=== PATIENT | male | born 1955 | race Caucasian/White ===

== ENCOUNTER 2019-05-24 09:26 | Emergency (ER) | payer BC ==
[2019-05-24 09:46] VITALS: TEMP 97.9
[2019-05-24] MEDS ORDERED: ALPRAZolam 0.25 MG TAB PO STA (10:22)
--- NOTE | 2019-05-24 10:25 | ED ---
General Adult HPI - General Chief complaint: Anxiety Stated complaint: anxiety, SOB Time Seen by Provider: 05/24/19 09:47 Source: patient Mode of arrival: ambulatory Limitations: no limitations - History of Present Illness Initial comments: Dictation was produced using [employer] dictation software. please excuse any grammatical, word or spelling errors. Chief Complaint: 63-year-old male with past medical history diabetes and hypertension presents with anxiety reaction. History of Present Illness: 63-year-old male who presents with symptoms of anxiety. Patient states he has a history of deviated septum. Patient states that last night he had some trouble breathing during sleep. He woke up with significant dyspnea. Patient does off and again felt like he couldn't breathe. He woke up feeling very anxious. Patient describes that he feels like there is impending doom. Patient feels much better since he's been awake. He actually has no complaints at this time. Patient has not received medical treatment or evaluation for deviated septum in the past. Denies any chest pain. No shortness of breath. The ROS documented in this emergency department record has been reviewed and confirmed by me. Those systems with pertinent positive or negative responses have been documented in the HPI. All other systems are other negative and/or noncontributory. PHYSICAL EXAM: General Impression: Alert and oriented x3, not in acute distress HEENT: Normocephalic atraumatic, extra-ocular movements intact, pupils equal and reactive to light bilaterally, mucous membranes moist. Cardiovascular: Heart regular rate and rhythm, S1&S2 audible, no murmurs, rubs or gallops Chest: Lungs clear to auscultation bilaterally, no rhonchi, no wheeze, no rales Abdomen: Bowel sounds present, abdomen soft, non-tender, non-distended, no organomegaly Musculoskeletal: Pulses present and equal in all extremities, no peripheral edema Motor: no focal deficits noted Neurological: CN II-XII grossly intact, no focal motor or sensory deficits noted Skin: Intact with no visualized rashes Psych: Normal affect and mood ED course: 63-year-old male presents with clinical presentation consistent with anxiety reaction. As upon arrival are within acceptable limits. Patient's well-appearing at bedside. Physical examination is benign. She given small Xanax by mouth tablet. He is reevaluated with improvement of symptoms. Laboratory evaluation obtained showing grossly normal findings. Magnesium is 1.5 however patient given by mouth magnesium. Patient is concerned about his deviated septum. He is given referral to saw offbearer. Vision also given 2 when necessary Xanax tabs for home with. - Related Data Home Medications Medication Instructions Recorded Confirmed Aspirin EC [Ecotrin Low Dose] 81 mg PO DAILY 05/24/19 05/24/19 Atorvastatin Calcium [Lipitor] 40 mg PO DAILY 05/24/19 05/24/19 Cyclobenzaprine [Flexeril] 10 mg PO BID PRN 05/24/19 05/24/19 Gemfibrozil [Lopid] 600 mg PO BID 05/24/19 05/24/19 Lisinopril-Hctz 20-25 mg 1 tab PO DAILY 05/24/19 05/24/19 [Zestoretic 20-25] Meloxicam [Mobic] 7.5 mg PO BID 05/24/19 05/24/19 Metoprolol Tartrate [Lopressor] 100 mg PO BID 05/24/19 05/24/19 Omeprazole 20 mg PO DAILY 05/24/19 05/24/19 amLODIPine [Norvasc] 5 mg PO DAILY 05/24/19 05/24/19 metFORMIN HCL 1,000 mg PO BID 05/24/19 05/24/19 Previous Rx's Medication Instructions Recorded ALPRAZolam [Xanax] 0.25 mg PO DAILY PRN 3 Days #3 tab 05/24/19 Allergies Allergy/AdvReac Type Severity Reaction Status Date / Time codeine Allergy Unknown Verified 05/24/19 10:35 erythromycin base Allergy Unknown Verified 05/24/19 10:35 Review of Systems ROS Statement: Those systems with pertinent positive or pertinent negative responses have been documented in the HPI. ROS Other: All systems not noted in ROS Statement are negative. Past Medical History Past Medical History: Diabetes Mellitus, Hypertension History of Any Multi-Drug Resistant Organisms: MRSA Date of last positivie culture/infection: 2013 MDRO Source:: knee Past Surgical History: No Surgical Hx Reported Past Psychological History: No Psychological Hx Reported Smoking Status: Never smoker Past Alcohol Use History: Occasional Past Drug Use History: None Reported General Exam Limitations: no limitations Course Vital Signs 05/24/19 09:42 Temperature 97.9 F Pulse Rate 57 L Respiratory 18 Rate Blood Pressure 199/93 O2 Sat by Pulse 96 Oximetry Medical Decision Making - Lab Data Result diagrams: 05/24/19 10:45 05/24/19 10:45 Lab Results 05/24/19 05/24/19 Range/Units 10:45 10:45 WBC 10.6 (3.8-10.6) k/uL RBC 5.21 (4.30-5.90) m/uL Hgb 15.1 (13.0-17.5) gm/dL Hct 44.6 (39.0-53.0) % MCV 85.7 (80.0-100.0) fL MCH 29.0 (25.0-35.0) pg MCHC 33.8 (31.0-37.0) g/dL RDW 14.2 (11.5-15.5) % Plt Count 317 (150-450) k/uL Neutrophils % 69 % Lymphocytes % 19 % Monocytes % 6 % Eosinophils % 4 % Basophils % 1 % Neutrophils # 7.3 (1.3-7.7) k/uL Lymphocytes # 2.0 (1.0-4.8) k/uL Monocytes # 0.6 (0-1.0) k/uL Eosinophils # 0.4 (0-0.7) k/uL Basophils # 0.1 (0-0.2) k/uL Poikilocytosis Slight Sodium 140 (137-145) mmol/L Potassium 3.8 (3.5-5.1) mmol/L Chloride 102 (98-107) mmol/L Carbon Dioxide 27 (22-30) mmol/L Anion Gap 11 mmol/L BUN 17 (9-20) mg/dL Creatinine 0.78 (0.66-1.25) mg/dL Est GFR (CKD-EPI)AfAm >90 (>60 ml/min/1.73 sqM) Est GFR (CKD-EPI)NonAf >90 (>60 ml/min/1.73 sqM) Glucose 124 H (74-99) mg/dL Calcium 9.9 (8.4-10.2) mg/dL Phosphorus 2.7 (2.5-4.5) mg/dL Magnesium 1.5 L (1.6-2.3) mg/dL Total Bilirubin 0.7 (0.2-1.3) mg/dL AST 35 (17-59) U/L ALT 45 (21-72) U/L Alkaline Phosphatase 53 (38-126) U/L Total Protein 7.4 (6.3-8.2) g/dL Albumin 4.5 (3.5-5.0) g/dL Disposition Clinical Impression: Anxiety reaction Disposition: HOME SELF-CARE Instructions (If sedation given, give patient instructions): Generalized Anxiety Disorder (ED) Prescriptions: ALPRAZolam [Xanax] 0.25 mg PO DAILY PRN 3 Days #3 tab PRN Reason: Anxiety Is patient prescribed a controlled substance at d/c from ED?: Yes If prescribed controlled substance>3 days was MAPS reviewed?: Prescribed <3 Days Referrals: Uriah Hooper DO [Doctor of Osteopathic Medicine] - 1-2 days Time of Disposition: 11:28
[2019-05-24 11:02] LABS: Basophils # (A) 0.1 k/uL (0-0.2); Basophils % (A) 1 %; Eosinophils # (A) 0.4 k/uL (0-0.7); Eosinophils % (A) 4 %; HCT 44.6 % (39.0-53.0); HGB 15.1 gm/dL (13.0-17.5); Lymphocytes % (A) 19 %; MCHC 33.8 g/dL (31.0-37.0); MCV 85.7 fL (80.0-100.0); Mean Platelet Volume 7.1; Monocytes # (A) 0.6 k/uL (0-1.0); Monocytes % (A) 6 %; Neutrophils # (A) 7.3 k/uL (1.3-7.7); Neutrophils % (A) 69 %; Platelet Count 317 k/uL (150-450); Poikilocytosis Slight; RBC 5.21 m/uL (4.30-5.90); RDW 14.2 % (11.5-15.5); WBC 10.6 k/uL (3.8-10.6)
[2019-05-24 11:14] LABS: ALT 45 U/L (21-72); AST 35 U/L (17-59); African American GFR (CKD) >90 (>60 ml/min/1.73 sqM); Albumin 4.5 g/dL (3.5-5.0); Alkaline Phosphatase 53 U/L (38-126); Anion Gap 11 mmol/L; Blood Urea Nitrogen 17 mg/dL (9-20); Calcium 9.9 mg/dL (8.4-10.2); Carbon Dioxide 27 mmol/L (22-30); Chloride 102 mmol/L (98-107); Glucose 124 mg/dL (74-99); Magnesium 1.5 mg/dL (1.6-2.3); Phosphorus 2.7 mg/dL (2.5-4.5); Potassium 3.8 mmol/L (3.5-5.1); Sodium 140 mmol/L (137-145); Total Bilirubin 0.7 mg/dL (0.2-1.3); Total Protein 7.4 g/dL (6.3-8.2)
[2019-05-24] MEDS ORDERED: MAGNESIUM OXIDE 400 MG TAB PO STA (11:18)
[2019-05-24 11:40] VITALS: BP 170/90; PULSE 80; RESP 16
== END 2019-05-24 11:38 | disposition home or self-care (01) ==
LOC: EC 09:26
DX: F41.1 Generalized anxiety disorder (principal); E11.9 Type 2 diabetes mellitus without complications; I10 Essential (primary) hypertension; J34.2 Deviated nasal septum; Z79.82 Long term (current) use of aspirin; Z79.84 Long term (current) use of oral hypoglycemic drugs; Z79.1 Long term (current) use of non-steroidal anti-inflammatories (NSAID); Z79.899 Other long term (current) drug therapy; Z88.1 Allergy status to other antibiotic agents; Z88.5 Allergy status to narcotic agent
CPT/HCPCS: 36415; 80053; 83735; 84100; 85025; 93005; 99283

== ENCOUNTER → 2021-05-25 | Outpatient (CLI) | payer BC ==
--- NOTE | 2021-05-26 07:58 | US ---
EXAMINATION TYPE: US abdomen complete DATE OF EXAM: 05/25/2021 COMPARISON: NONE CLINICAL HISTORY: 65-year-old male R10.11 RUQ Abd pain. TECHNIQUE: Multiple sonographic images of the abdomen are obtained. FINDINGS: EXAM MEASUREMENTS: Liver Length: 15.5 cm Gallbladder Wall: 0.3 cm CBD: 0.5 cm Spleen: 11.3 cm Right Kidney: 12.9 x 6.2 x 5.8 cm Left Kidney: 12.9 x 5.8 x 5.2 cm Pancreas: Only a small portion of the pancreatic neck is seen. Remainder is obscured by bowel gas sh adowing. Liver: Very slightly heterogeneous and echogenic. No focal lesion is seen. Gallbladder: No stones seen Evidence for sonographic Hinton's sign: No CBD: wnl Spleen: wnl Right Kidney: No hydronephrosis or masses seen Left Kidney: No hydronephrosis or masses seen Upper IVC: wnl Abd Aorta: Obscured by overlying bowel gas IMPRESSION: 1. Suspect underlying mild hepatic steatosis. 2. No gallstones or biliary ductal dilatation.
== END | disposition home or self-care (01) ==
LOC: RADUSWWP 15:45
PROVIDERS: ATTEND Internal Medicine
DX: R10.11 Right upper quadrant pain (principal)
CPT/HCPCS: 76700

== ENCOUNTER 2021-09-08 10:52 | Emergency (ER) | payer BC ==
[2021-09-08 11:21] VITALS: TEMP 97.4
[2021-09-08] MEDS ORDERED: ONDANSETRON 4 MG/2 ML VIAL IVP STA (11:56)
[2021-09-08] MEDS ORDERED: SODIUM CHLORIDE 0.9% 1,000 ML IV STA (11:56)
[2021-09-08 12:32] LABS: Basophils % (A) 1 %; Eosinophils # (A) 0.2 k/uL (0-0.7); Eosinophils % (A) 2 %; HCT 43.7 % (39.0-53.0); HGB 15.2 gm/dL (13.0-17.5); Lymphocytes # (A) 0.6 k/uL (1.0-4.8); Lymphocytes % (A) 9 %; MCH 30.2 pg (25.0-35.0); MCHC 34.7 g/dL (31.0-37.0); Mean Platelet Volume 7.6; Monocytes # (A) 0.6 k/uL (0-1.0); Monocytes % (A) 9 %; Neutrophils # (A) 5.1 k/uL (1.3-7.7); Neutrophils % (A) 77 %; Platelet Count 276 k/uL (150-450); RBC 5.02 m/uL (4.30-5.90); RDW 13.8 % (11.5-15.5); WBC 6.6 k/uL (3.8-10.6)
[2021-09-08 12:41] LABS: ALT 31 U/L (4-49); AST 39 U/L (17-59); African American GFR (CKD) >90 (>60 ml/min/1.73 sqM); Albumin 4.8 g/dL (3.5-5.0); Alkaline Phosphatase 79 U/L (38-126); Anion Gap 11 mmol/L; Blood Urea Nitrogen 13 mg/dL (9-20); Carbon Dioxide 32 mmol/L (22-30); Chloride 89 mmol/L (98-107); Glucose 133 mg/dL (74-99); Non-African American GFR(CKD) >90 (>60 ml/min/1.73 sqM); Potassium 2.8 mmol/L (3.5-5.1); Sodium 132 mmol/L (137-145); Total Bilirubin 0.9 mg/dL (0.2-1.3); Total Protein 7.9 g/dL (6.3-8.2)
[2021-09-08] MEDS ORDERED: SODIUM CHLORIDE 0.9% 50 ML IVPB ONE (12:45)
[2021-09-08] MEDS ORDERED: METOPROLOL TARTRATE 50 MG TAB PO STA (12:58)
[2021-09-08] MEDS ORDERED: LISINOPRIL-HCTZ 20-25 MG 1 EACH TAB PO STA (12:58)
[2021-09-08] MEDS ORDERED: amLODIPine 5 MG TAB PO STA (12:58)
[2021-09-08] MEDS ORDERED: BAMLANIVIMAB (EUA) 700 MG, ETESEVIMAB (EUA) 1,400 MG in SODIUM CHLORIDE 0.9% 100 ML IVPB ONE (13:15)
[2021-09-08] MEDS ORDERED: POTASSIUM CHLORIDE ER 20 MEQ TAB.ER PO STA (13:26)
--- NOTE | 2021-09-08 13:35 | ED ---
General Adult HPI - General Chief complaint: Nausea/Vomiting/Diarrhea Stated complaint: Covid+/Wants antibodies Time Seen by Provider: 09/08/21 11:23 Source: patient, RN notes reviewed Mode of arrival: ambulatory Limitations: no limitations - History of Present Illness Initial comments: 65-year-old male presents to the emergency room for a chief complaint of not feeling well. Patient states his whole family tested positive for COVID-19. States that he did not test positive at home but believes he has a. Patient has had some nausea vomiting and hasn't been able to keep down his medications. He has been somewhat short of breath. He has also felt very weak. He states that she would like to have the antibody infusion.Patient has no other complaints at this time including shortness of breath, chest pain, abdominal pain, headache, or visual changes. - Related Data Home Medications Medication Instructions Recorded Confirmed Atorvastatin Calcium [Lipitor] 40 mg PO DAILY 05/24/19 09/08/21 Gemfibrozil [Lopid] 600 mg PO BID 05/24/19 09/08/21 Lisinopril-Hctz 20-25 mg 1 tab PO BID 05/24/19 09/08/21 [Zestoretic 20-25] Meloxicam [Mobic] 7.5 mg PO BID 05/24/19 09/08/21 Metoprolol Tartrate [Lopressor] 100 mg PO BID 05/24/19 09/08/21 Omeprazole 20 mg PO DAILY 05/24/19 09/08/21 amLODIPine [Norvasc] 5 mg PO DAILY 05/24/19 09/08/21 metFORMIN HCL [Glucophage] 1,000 mg PO AC-BID 05/24/19 09/08/21 busPIRone HCl [Buspar] 10 mg PO BID 09/08/21 09/08/21 Previous Rx's Medication Instructions Recorded Magnesium Oxide [Mag-Ox] 400 mg PO DAILY #5 tablet 09/08/21 Ondansetron [Zofran ODT] 4 mg PO Q8HR PRN #15 tab 09/08/21 Potassium Chloride ER [K-Dur 20] 40 meq PO BID 3 Days #6 tab 09/08/21 Allergies Allergy/AdvReac Type Severity Reaction Status Date / Time erythromycin base Allergy Unknown Verified 09/08/21 13:24 codeine AdvReac Chest Pain Verified 09/08/21 13:24 Review of Systems ROS Statement: Those systems with pertinent positive or pertinent negative responses have been documented in the HPI. ROS Other: All systems not noted in ROS Statement are negative. Past Medical History Past Medical History: Diabetes Mellitus, Hypertension History of Any Multi-Drug Resistant Organisms: MRSA Date of last positivie culture/infection: 2013 MDRO Source:: knee Past Surgical History: No Surgical Hx Reported Past Psychological History: No Psychological Hx Reported Smoking Status: Never smoker Past Alcohol Use History: Occasional Past Drug Use History: Marijuana General Exam Limitations: no limitations General appearance: alert, in no apparent distress Head exam: Present: atraumatic Eye exam: Present: normal appearance, PERRL, EOMI. Absent: scleral icterus, conjunctival injection ENT exam: Present: normal exam, mucous membranes moist Neck exam: Present: normal inspection, full ROM. Absent: tenderness Respiratory exam: Present: normal lung sounds bilaterally. Absent: respiratory distress, wheezes Cardiovascular Exam: Present: regular rate, normal rhythm, normal heart sounds GI/Abdominal exam: Present: soft, normal bowel sounds. Absent: distended, tende rness Neurological exam: Present: alert Course Vital Signs 09/08/21 09/08/21 09/08/21 11:17 11:42 12:21 Temperature 97.4 F L Pulse Rate 106 H 95 Respiratory 18 16 16 Rate Blood Pressure 182/102 200/105 O2 Sat by Pulse 96 91 L Oximetry 09/08/21 14:00 Temperature Pulse Rate 100 Respiratory 18 Rate Blood Pressure 183/97 O2 Sat by Pulse 92 L Oximetry Medical Decision Making - Medical Decision Making Vitals are stable.Patient is hypertensive however was unable to keep down his multiple medications today for this. Patient did test positive for COVID-19. Laboratory evaluation was initiated given patient has not been able to eat or drink much. This did reveal hypokalemia and hypomagnesemia. No EKG changes. These were replaced. I did recommend admission however patient strongly prefers discharge home. We will discharge him home with replacement therapy orally for the next several days. He will be discharged with Zofran as well as as he is now tolerating oral intake with this. He will return here for any worsening symptoms. - Lab Data Result diagrams: 09/08/21 12:01 09/08/21 12:02 Lab Results 09/08/21 09/08/2109/08/21 Range/Units 11:25 12:01 12:02 WBC 6.6 (3.8-10.6) k/uL RBC 5.02 (4.30-5.90) m/uL Hgb 15.2 (13.0-17.5) gm/dL Hct 43.7 (39.0-53.0) % MCV 87.0 (80.0-100.0) fL MCH 30.2 (25.0-35.0) pg MCHC 34.7 (31.0-37.0) g/dL RDW 13.8 (11.5-15.5) % Plt Count 276 (150-450) k/uL MPV 7.6 Neutrophils % 77 % Lymphocytes % 9 % Monocytes % 9 % Eosinophils % 2 % Basophils % 1 % Neutrophils # 5.1 (1.3-7.7) k/uL Lymphocytes # 0.6 L (1.0-4.8) k/uL Monocytes # 0.6 (0-1.0) k/uL Eosinophils # 0.2 (0-0.7) k/uL Basophils # 0.0 (0-0.2) k/uL Sodium 132 L (137-145) mmol/L Potassium 2.8 L (3.5-5.1) mmol/L Chloride 89 L (98-107) mmol/L Carbon Dioxide 32 H (22-30) mmol/L Anion Gap 11 mmol/L BUN 13 (9-20) mg/dL Creatinine 0.72 (0.66-1.25) mg/dL Est GFR (CKD-EPI)AfAm >90 (>60 ml/min/1.73 sqM) Est GFR (CKD-EPI)NonAf >90 (>60 ml/min/1.73 sqM) Glucose 133 H (74-99) mg/dL Calcium 10.0 (8.4-10.2) mg/dL Magnesium (1.6-2.3) mg/dL Total Bilirubin 0.9 (0.2-1.3) mg/dL AST 39 (17-59) U/L ALT 31 (4-49) U/L Alkaline Phosphatase 79 (38-126) U/L Total Protein 7.9 (6.3-8.2) g/dL Albumin 4.8 (3.5-5.0) g/dL Coronavirus (PCR) Detected A (Not Detectd) 09/08/21 Range/Units 12:02 WBC (3.8-10.6) k/uL RBC (4.30-5.90) m/uL Hgb (13.0-17.5) gm/dL Hct (39.0-53.0) % MCV (80.0-100.0) fL MCH (25.0-35.0) pg MCHC (31.0-37.0) g/dL RDW (11.5-15.5) % Plt Count (150-450) k/uL MPV Neutrophils % % Lymphocytes % % Monocytes % % Eosinophils % % Basophils % % Neutrophils # (1.3-7.7) k/uL Lymphocytes # (1.0-4.8) k/uL Monocytes # (0-1.0) k/uL Eosinophils # (0-0.7) k/uL Basophils # (0-0.2) k/uL Sodium (137-145) mmol/L Potassium (3.5-5.1) mmol/L Chloride (98-107) mmol/L Carbon Dioxide (22-30) mmol/L Anion Gap mmol/L BUN (9-20) mg/dL Creatinine (0.66-1.25) mg/dL Est GFR (CKD-EPI)AfAm (>60 ml/min/1.73 sqM) Est GFR (CKD-EPI)NonAf (>60 ml/min/1.73 sqM) Glucose (74-99) mg/dL Calcium (8.4-10.2) mg/dL Magnesium 0.9 L* (1.6-2.3) mg/dL Total Bilirubin (0.2-1.3) mg/dL AST (17-59) U/L ALT (4-49) U/L Alkaline Phosphatase (38-126) U/L Total Protein (6.3-8.2) g/dL Albumin (3.5-5.0) g/dL Coronavirus (PCR) (Not Detectd) Disposition Clinical Impression: Hypomagnesemia, Hypokalemia, COVID-19 Disposition: HOME SELF-CARE Condition: Good Instructions (If sedation given, give patient instructions): Acute Nausea and Vomiting (ED), Coronavirus Disease 2019 (COVID-19) Additional Instructions: Please take medications as directed. Follow-up with your doctor. If you are not able to keep any of your medications or food down return to the emergency room. Prescriptions: Potassium Chloride ER [K-Dur 20] 40 meq PO BID 3 Days #6 tab Magnesium Oxide [Mag-Ox] 400 mg PO DAILY #5 tablet Ondansetron [Zofran ODT] 4 mg PO Q8HR PRN #15 tab PRN Reason: Nausea Is patient prescribed a controlled substance at d/c from ED?: No Referrals: Radha Herrera MD [Primary Care Provider] - 1-2 days Time of Disposition: 15:00
[2021-09-08] MEDS ORDERED: Magnesium Replacement Protocol 1 EACH MISC MISCELLANE PRN (13:39)
[2021-09-08] MEDS: MAGNESIUM SULFATE-D5W PMX 1 GM in DEXTROSE/WATER 1 100ML.BAG IVPB SCH ×2 (13:56→14:50)
[2021-09-08 14:32] VITALS: RESP 18
[2021-09-08 16:00] VITALS: BP 181/93; PULSE 77
== END 2021-09-08 16:08 | disposition home or self-care (01) ==
LOC: EC 10:52
DX: U07.1 COVID-19 (principal); E87.6 Hypokalemia; E83.42 Hypomagnesemia; I10 Essential (primary) hypertension; E11.9 Type 2 diabetes mellitus without complications; F12.90 Cannabis use, unspecified, uncomplicated; Z79.84 Long term (current) use of oral hypoglycemic drugs; Z88.5 Allergy status to narcotic agent
CPT/HCPCS: 96361; 96365; 96375; 99285; M0245; 36415; 80053; 83735; 85025; 87635; 93005

== ENCOUNTER 2021-09-16 14:37 | Emergency (ER) | payer BC ==
[2021-09-16 15:34] VITALS: TEMP 98.1
[2021-09-16] MEDS ORDERED: SODIUM CHLORIDE 0.9% 1,000 ML IV STA (16:22)
[2021-09-16] MEDS ORDERED: ONDANSETRON 4 MG/2 ML VIAL IVP STA (16:22)
[2021-09-16 17:11] LABS: Basophils # (A) 0.1 k/uL (0-0.2); Basophils % (A) 0 %; Eosinophils # (A) 0.4 k/uL (0-0.7); Eosinophils % (A) 3 %; HCT 46.6 % (39.0-53.0); HGB 15.9 gm/dL (13.0-17.5); Lymphocytes # (A) 1.9 k/uL (1.0-4.8); Lymphocytes % (A) 18 %; MCH 29.9 pg (25.0-35.0); MCHC 34.1 g/dL (31.0-37.0); MCV 87.7 fL (80.0-100.0); Mean Platelet Volume 7.6; Monocytes # (A) 0.7 k/uL (0-1.0); Monocytes % (A) 6 %; Neutrophils # (A) 7.8 k/uL (1.3-7.7); Neutrophils % (A) 71 %; Platelet Count 387 k/uL (150-450); RBC 5.31 m/uL (4.30-5.90); RDW 14.1 % (11.5-15.5); WBC 11.1 k/uL (3.8-10.6)
[2021-09-16 17:19] LABS: ALT 39 U/L (4-49); AST 36 U/L (17-59); African American GFR (CKD) >90 (>60 ml/min/1.73 sqM); Albumin 4.5 g/dL (3.5-5.0); Alkaline Phosphatase 78 U/L (38-126); Amylase 42 U/L (30-110); Anion Gap 10 mmol/L; Blood Urea Nitrogen 22 mg/dL (9-20); Calcium 10.1 mg/dL (8.4-10.2); Carbon Dioxide 30 mmol/L (22-30); Chloride 90 mmol/L (98-107); Glucose 111 mg/dL (74-99); Lipase 76 U/L (23-300); Magnesium 1.4 mg/dL (1.6-2.3); Non-African American GFR(CKD) >90 (>60 ml/min/1.73 sqM); Potassium 3.4 mmol/L (3.5-5.1); Sodium 130 mmol/L (137-145); Total Bilirubin 0.9 mg/dL (0.2-1.3); Total Protein 7.4 g/dL (6.3-8.2)
[2021-09-16] MEDS ORDERED: MAGNESIUM OXIDE 400 MG TAB PO STA (18:08)
[2021-09-16] MEDS ORDERED: POTASSIUM CHLORIDE ER 20 MEQ TAB.ER PO STA (18:08)
--- NOTE | 2021-09-16 18:10 | ED ---
Nausea/Vomiting/Diarrhea HPI - General Chief complaint: Nausea/Vomiting/Diarrhea Stated complaint: COVID +,N/V Time Seen by Provider: 09/16/21 16:15 Source: patient, RN notes reviewed Mode of arrival: ambulatory Limitations: no limitations - History of Present Illness Initial comments: Patient is a 65-year-old male that presents to the emergency department complaining of nausea and vomiting. He notes he is been Covid-positive since the got monoclonal antibodies. He notes that his last visit his electrolytes were slightly off. He notes that he is only vomited several times today. He notes that he is tolerating orals and small quantities. He notes that he take Zofran before being and tends to help. He notes his centimeters emergency room to get repeat labs to make sure his electrolytes are okay. Patient denied any other issues or complaints. He was otherwise well- appearing. He denied any chest pain shortness of breath headache diarrhea constipation fever fatigue chills. - Related Data Home Medications Medication Instructions Recorded Confirmed Atorvastatin Calcium [Lipitor] 40 mg PO DAILY 05/24/19 09/16/21 Gemfibrozil [Lopid] 600 mg PO BID 05/24/19 09/16/21 Lisinopril-Hctz 20-25 mg 1 tab PO BID 05/24/19 09/16/21 [Zestoretic 20-25] Meloxicam [Mobic] 7.5 mg PO BID 05/24/19 09/16/21 Metoprolol Tartrate [Lopressor] 100 mg PO BID 05/24/19 09/16/21 Omeprazole 20 mg PO DAILY 05/24/19 09/16/21 amLODIPine [Norvasc] 5 mg PO DAILY 05/24/19 09/16/21 metFORMIN HCL [Glucophage] 1,000 mg PO AC-BID 05/24/19 09/16/21 busPIRone HCl [Buspar] 10 mg PO BID 09/08/21 09/16/21 Aspirin EC [Ecotrin Low Dose] 81 mg PO DAILY 09/16/21 09/16/21 Allergies Allergy/AdvReac Type Severity Reaction Status Date / Time erythromycin base Allergy Unknown Verified 09/16/21 17:00 codeine AdvReac Chest Pain Verified 09/16/21 17:00 Review of Systems ROS Statement: Those systems with pertinent positive or pertinent negative responses have been documented in the HPI. ROS Other: All systems not noted in ROS Statement are negative. Past Medical History Past Medical History: Diabetes Mellitus, Hypertension History of Any Multi-Drug Resistant Organisms: MRSA Date of last positivie culture/infection: 2013 MDRO Source:: knee Past Surgical History: No Surgical Hx Reported Past Psychological History: No Psychological Hx Reported Smoking Status: Never smoker Past Alcohol Use History: Occasional Past Drug Use History: Marijuana General Exam Limitations: no limitations General appearance: alert, in no apparent distress Head exam: Present: atraumatic, normocephalic, normal inspection Eye exam: Present: normal appearance, PERRL, EOMI. Absent: scleral icterus, conjunctival injection, periorbital swelling ENT exam: Present: normal exam, mucous membranes moist Neck exam: Present: normal inspection. Absent: tenderness, meningismus, lymphadenopathy Respiratory exam: Present: normal lung sounds bilaterally. Absent: respiratory distress, wheezes, rales, rhonchi, stridor Cardiovascular Exam: Present: regular rate, normal rhythm, normal heart sounds. Absent: systolic murmur, diastolic murmur, rubs, gallop, clicks GI/Abdominal exam: Present: soft, normal bowel sounds. Absent: distended, tenderness, guarding, rebound, rigid Extremities exam: Present: normal inspection, full ROM, normal capillary refill. Absent: tenderness, pedal edema, joint swelling, calf tenderness Neurological exam: Present: alert, oriented X3 Psychiatric exam: Present: normal affect, normal mood Skin exam: Present: warm, dry, intact, normal color. Absent: rash Course Vital Signs 09/16/21 15:32 Temperature 98.1 F Pulse Rate 62 Respiratory 20 Rate Blood Pressure 181/85 O2 Sat by Pulse 96 Oximetry Medical Decision Making - Medical Decision Making 65-year-old male with nausea and vomiting, Covid-positive are he received monoclonal sprain Basic labs, 1 L normal saline, 4 mg of Zofran ordered. Labs potassium 3.4, magnesium 1.4. K-Dur 10 and magnesium oxide ordered. Patient was informed of results yesterday with discharge home with follow-up to primary care. Case discussed with Dr. Del Angel. - Lab Data Result diagrams: 09/16/21 16:55 09/16/21 16:55 Lab Results 09/16/21 09/16/21 Range/Units 16:55 16:55 WBC 11.1 H (3.8-10.6) k/uL RBC 5.31 (4.30-5.90) m/uL Hgb 15.9 (13.0-17.5) gm/dL Hct 46.6 (39.0-53.0) % MCV 87.7 (80.0-100.0) fL MCH 29.9 (25.0-35.0) pg MCHC 34.1 (31.0-37.0) g/dL RDW 14.1 (11.5-15.5) % Plt Count 387 (150-450) k/uL MPV 7.6 Neutrophils % 71 % Lymphocytes % 18 % Monocytes % 6 % Eosinophils % 3 % Basophils % 0 % Neutrophils # 7.8 H (1.3-7.7) k/uL Lymphocytes # 1.9 (1.0-4.8) k/uL Monocytes # 0.7 (0-1.0) k/uL Eosinophils # 0.4 (0-0.7) k/uL Basophils # 0.1 (0-0.2) k/uL Sodium 130 L (137-145) mmol/L Potassium 3.4 L (3.5-5.1) mmol/L Chloride 90 L (98-107) mmol/L Carbon Dioxide 30 (22-30) mmol/L Anion Gap 10 mmol/L BUN 22 H (9-20) mg/dL Creatinine 0.88 (0.66-1.25) mg/dL Est GFR (CKD-EPI)AfAm >90 (>60 ml/min/1.73 sqM) Est GFR (CKD-EPI)NonAf >90 (>60 ml/min/1.73 sqM) Glucose 111 H (74-99) mg/dL Calcium 10.1 (8.4-10.2) mg/dL Magnesium 1.4 L (1.6-2.3) mg/dL Total Bilirubin 0.9 (0.2-1.3) mg/dL AST 36 (17-59) U/L ALT 39 (4-49) U/L Alkaline Phosphatase 78 (38-126) U/L Total Protein 7.4 (6.3-8.2) g/dL Albumin 4.5 (3.5-5.0) g/dL Amylase 42 (30-110) U/L Lipase 76 (23-300) U/L Disposition Clinical Impression: Hypomagnesemia, Hypokalemia, Dehydration, Nausea & vomiting Disposition: HOME SELF-CARE Condition: Stable Instructions (If sedation given, give patient instructions): Acute Nausea and Vomiting (ED) Additional Instructions: Please return to the Emergency Department if symptoms worsen or any other concerns. Follow-up with primary care 1-2 days. Increase fluids. Continue take Zofran as prescribed. Can take kjov-asr-yaowgae multivitamin. Is patient prescribed a controlled substance at d/c from ED?: No Referrals: Radha Herrera MD [Primary Care Provider] - 1-2 days Time of Disposition: 18:10
[2021-09-16 18:32] VITALS: BP 166/85; PULSE 58; RESP 18
== END 2021-09-16 18:32 | disposition home or self-care (01) ==
LOC: EC 14:37
DX: R11.2 Nausea with vomiting, unspecified (principal); E83.42 Hypomagnesemia; E87.6 Hypokalemia; E86.0 Dehydration; E11.9 Type 2 diabetes mellitus without complications; I10 Essential (primary) hypertension; F12.90 Cannabis use, unspecified, uncomplicated; Z79.84 Long term (current) use of oral hypoglycemic drugs; Z79.82 Long term (current) use of aspirin; Z88.5 Allergy status to narcotic agent
CPT/HCPCS: 99284; 96374; 96361; 36415; 80053; 82150; 83690; 83735; 85025; J2405

== ENCOUNTER → 2023-07-23 | Outpatient (CLI) | payer MEDICARE | END | disposition home or self-care (01) | LOC: LABPAT 15:20 | PROVIDERS: ATTEND Orthopaedic Surgery | DX: Z01.812 Encounter for preprocedural laboratory examination (principal); M16.12 Unilateral primary osteoarthritis, left hip; Z22.322 Carrier or suspected carrier of Methicillin resistant Staphylococcus aureus | CPT/HCPCS: 86850; 86900; 86901; 87070 ==

== ENCOUNTER 2023-07-30 05:32 | Observation (INO) | payer BC, MEDICARE ==
[2023-07-24 12:20] VITALS: BMI 34.9
--- NOTE | 2023-07-29 12:40 | HP ---
HISTORY AND PHYSICAL DATE OF SURGERY: 07/30/2023. HISTORY OF PRESENT ILLNESS: Parish Rowe is a 67-year-old gentleman, seen with symptomatic left hip osteoarthritis failing conservative treatment measures. After having options discussed, he elected to proceed with direct anterior left total hip arthroplasty. Consents obtained. Medical clearance provided by Dr. Herrera. Cardiac clearance provided by Cardiology. PAST MEDICAL HISTORY: Oux-nluvdnv-kymslpuny diabetes, hypertension. PAST SURGICAL HISTORY: Noncontributory. DAILY MEDICATIONS: Amlodipine, atorvastatin, gemfibrozil, lisinopril, meloxicam, metformin, metoprolol. ALLERGIES: Codeine. SOCIAL HISTORY: He denies tobacco use. PHYSICAL EVALUATION OF THE LEFT HIP: Diffuse tenderness about the hip girdle. Limited range of motion. Severe pain. Positive hip impingement sign. Straight-leg raise negative. Distal neurovascular exam is intact. IMAGING STUDIES: Left hip radiographs reveal severe osteoarthritic changes. IMPRESSION: 1. Left hip osteoarthritis. 2. Hypertension. 3. Hyperlipidemia. 4. Xkg-mezcbbd-ntkamjgmq diabetes. PLAN: Direct anterior left total hip arthroplasty. MMODL / IJN: [id number] /
[~2023-07-30 05:32] MED LIST: ACETAMINOPHEN TAB 500 MG TAB PO PRN; MELOXICAM 7.5 MG TAB PO PRN; TRANEXAMIC 1,000 MG/100ML-NACL 1,000 MG in SALINE 1 100ML.BAG IVPB PRN
[2023-07-30] MEDS ORDERED: DEXAMETHASONE SOD PHOSPHATE 4 MG/ML 1 ML VIAL IV ONE (06:07)
[2023-07-30] MEDS ORDERED: ONDANSETRON 4 MG/2 ML VIAL IVP ONE ×2 (06:07→11:16)
[2023-07-30] MEDS ORDERED: LIDOCAINE 1% (10MG/ML) FOR IV START INTRADERMA ONE (06:50)
[2023-07-30] MEDS: LACTATED RINGERS 1,000 ML IV SCH (06:50)
[2023-07-30 06:58] LABS: Glucose,Whole Blood 120 mg/dL (70-110)
[2023-07-30] MEDS ORDERED: fentaNYL (PF) 50 MCG/ML 2 ML AMP IV PRN (07:00)
[2023-07-30] MEDS ORDERED: FAMOTIDINE 20 MG/2 ML VIAL IVP ONE (07:00)
[2023-07-30] MEDS ORDERED: MIDAZOLAM 2 MG/2 ML VIAL IV PRN (07:00)
[2023-07-30] MEDS ORDERED: SODIUM CHLORIDE 0.9% NEBULIZ 3 ML INHALATION ONE (07:05)
--- NOTE | 2023-07-30 07:32 | P.ANPRN ---
Procedure Note - Anesthesia - Nerve Block Performed Left Ernesto Single Time Out Performed: Yes Date of Procedure: 07/30/23 Procedure Start Time: 07:15 Procedure Stop Time: :20 Location of Patient: PreOp Indication: Acute Post-Operative Pain, Requested by Surgeon Sedation Type: Sedate with meaningful contact maintained Preparation: Sterile Prep Position: Supine Catheter: None Needle Types: Pajunk Needle Gauge: 21 Ultrasound used to visualize needle placement: Yes Ultrasound used to observe medication spread: Yes Injectate: 0.5% Ropivacaine (see comment for volume) (Roopiv 10ml+NS 10 ml) Pain Paresthesia on Injection Noted: No Resistance on Injection: Normal Image Stored and Saved: Yes Events: Uneventful and Well Tolerated
[2023-07-30] MEDS ORDERED: ceFAZolin 1,000 MG in SODIUM CHLORIDE 0.9% 1,000 ML IRRIGATION ONE (08:08)
[2023-07-30] MEDS ORDERED: LACTATED RINGERS 1,000 ML IV ONE ×2 (08:36→08:57)
[2023-07-30] MEDS ORDERED: NALOXONE 0.4 MG/ML 1 ML VIAL IV PRN (08:57)
[2023-07-30] MEDS ORDERED: HYDROmorphone 0.5 MG/0.5 ML SYRINGE IVP PRN ×3 (08:57)
[2023-07-30] MEDS ORDERED: HYDROcodone/APAP 5-325MG 1 EACH TAB PO PRN (08:57)
[2023-07-30] MEDS ORDERED: ONDANSETRON 4 MG/2 ML VIAL IVP PRN (08:57)
--- NOTE | 2023-07-30 08:57 | P.OP ---
Date of Procedure: 07/30/23 Preoperative Diagnosis: Left hip osteoarthritis Postoperative Diagnosis: Left hip osteoarthritis Procedure(s) Performed: Direct anterior left total hip arthroplasty Implants: 1. Depuy Corail KLA size 12 high offset collared press fit femoral stem 2. Depuy pinnacle 56 mm press-fit acetabular shell 3. Depuy pinnacle neutral polyethylene acetabular liner 36 mm ID 56 mm OD 4. Depuy metal femoral head 36 mm -2 Anesthesia: GETA, regional (erector spinae block) Surgeon: Bernardo Robles Heat Treat Inspector #1: Jefry Tian Estimated Blood Loss (ml): 55 Pathology: none sent Condition: stable Disposition: PACU Indications for Procedure: 67-year-old gentleman seen with symptomatic left hip osteoarthritis. After having treatment options discussed, he elected to proceed with direct anterior left total hip arthroplasty. Operative Findings: See description of procedure Description of Procedure: The patient was taken to the operative suite. Patient underwent a general anesthetic by the department of anesthesia. Patient was then transferred to the [place] table. Patient was given preoperative IV antibiotics and TXA. Both lower extremities were placed in standard leg spars. The hip was then prepped and draped in the normal sterile orthopedic fashion. A standard anterior incision was made beginning 3 cm lateral and 1 cm distal to the ASIS extending 10 cm. Dissection was then carried down through the subcutaneous soft tissues down to the fascia overlying the tensor fascia dominic. An incision was now made through the fascia. Careful dissection was taken down exposing the tensor fascia dominic muscle. A Cobra retractor was now placed along the medial femoral neck and a second one along the lateral femoral neck. The venous circumflex vessels were now identified, cauterized and clipped. We identified the anterior hip capsule. An incision was made through the hip capsule along the lateral border. I performed a partial anterior capsulectomy. Retractors were now placed around the femoral neck itself. A femoral neck cut was now made with a sagittal saw. It was completed with an osteotome at the lateral neck area. The femoral head was now removed without difficulty. The extremity was now rotated to 60 of external rotation. It was locked in position. Residual labrum was now debrided out. Serial reaming was performed of the acetabulum while Ajith JOHNSON assisted holding an anterior retractor for exposure. Once we reached the appropriate size and a trial was position and fit nicely. The appropriate size was now chosen opened and made available. It was introduced into the acetabulum without difficulty. The C-arm/fluoroscopy was now brought into the operative field. We made sure we had a true AP pelvic view. We now under direct C-arm/fl uoroscopy introduced into the acetabular component with appropriate version and inclination. I held the cup in appropriate position well Ajith JOHNSON used a mallet to seat the acetabular component. I noted the component now to be well seated and stable. Acetabular cup introduce her was removed. The C-arm was pulled back. An appropriate liner was introduced and clicked into position. It was felt to be stable. At this point retractors were removed. The extremity was now placed into 140 external rotation with no traction. The leg was now dropped to the ground and adducted. Appropriate retractors were now positioned along the proximal femur. We also placed our femoral look into position. Additional capsular releasing was performed to gain access to the proximal femur. We now used a box osteotome. A canal finder was now utilized. Serial broaching was now performed with the assistance of Ajith JOHNSON tapping the broaches down with a mallet while held the broach in appropriate rotation and position. This was done until we reached the appropriate size with good overall rotational stability. Appropriate calcar planing was performed. A trial head/neck was placed into position. The hip was now reduced. The C- arm/fluoroscopy was brought back into the operative field. I obtained an AP pelvis demonstrating adequate leg length alignment. The trial components. Adeq uately sized and positioned. The C-arm/fluoroscopy was pulled back. Retractors were repositioned and the hip was dislocated. The leg was again taken down to the ground and adducted. Appropriate retractors were repositioned as well as the femoral hook. All trial components were removed. The femoral implant was opened along with the femoral head. The femoral implant was introduced on the appropriate handle into our pre-broached area. I held the component position well Ajith JOHNSON used a mallet to seat the femoral component. The femoral component was now noted to be well seated and stable.. The femoral head was introduced with good positioning and fixation noted. Retractors were now removed. The hip was now reduced. There appeared be good positioning of the hip confirmed on intraoperative fluoroscopy. Spot films were obtained to document this. A second gram of TXA was given. Bipolar cautery had been utilized intermittently through the procedure for hemostasis. The wound was irrigated copiously with pulse lavage mechanical irrigation. The fascia was repaired with Vicryl suture. The subcutaneous soft tissues were repaired in layers with Vicryl suture. The skin was approximated with pernio/Dermabond. Sterile dressings were applied. Patient was then awakened, transferred to a bed and taken to recovery in stable condition. Ajith JOHNSON assisted with the complex procedure.
--- NOTE | 2023-07-30 09:04 | XR ---
Fluoroscopy History: LEFT ANTERIOR HIP L HIP REPLACEMENT, 18SEC FL TIME, [id number]
[2023-07-30 09:26] LABS: Glucose,Whole Blood 158 mg/dL (70-110)
[2023-07-30] MEDS: HYDROmorphone 0.5 MG/0.5 ML SYRINGE IVP ONE ×2 (09:44→09:56)
[2023-07-30] MEDS ORDERED: ENALAPRILAT 1.25 MG/ML 1 ML VIAL IVP ONE ×2 (09:52→10:47)
[2023-07-30] MEDS ORDERED: HYDROmorphone 0.5 MG/0.5 ML SYRINGE IVP ONE (10:27)
[2023-07-30] MEDS ORDERED: fentaNYL (PF) 50 MCG/1 ML VIAL IVP ONE (10:45)
[2023-07-30] MEDS ORDERED: hydrALAZINE HCL 20 MG/ML 1 ML VIAL ONE (12:36)
[2023-07-30] MEDS ORDERED: KETOROLAC 15 MG/ML 1 ML VIAL ONE (12:36)
[2023-07-30] MEDS ORDERED: KETOROLAC 15 MG/ML 1 ML VIAL IVP ONE ×2 (12:38→12:42)
[2023-07-30] MEDS ORDERED: hydrALAZINE HCL 20 MG/ML 1 ML VIAL IVP ONE (12:38)
[2023-07-30 16:53] LABS: Glucose,Whole Blood 157 mg/dL (70-110)
[2023-07-30 20:03] LABS: Glucose,Whole Blood 130 mg/dL (70-110)
[2023-07-30] MEDS: busPIRone HCl 10 MG TAB PO SCH (21:57)
[2023-07-30] MEDS: lisinopriL 20 MG TAB PO SCH (21:57)
[2023-07-30] MEDS: METOPROLOL TARTRATE 50 MG TAB PO SCH (21:57)
[2023-07-31] MEDS: HYDROcodone/APAP 7.5-325MG 1 EACH TAB PO PRN ×3 (00:50→15:49)
[2023-07-31] MEDS: LACTATED RINGERS 1,000 ML IV SCH (02:41)
[2023-07-31 06:00] LABS: Glucose,Whole Blood 124 mg/dL (70-110)
[2023-07-31] MEDS: PANTOPRAZOLE 40 MG TABLET PO SCH (06:15)
[2023-07-31 07:23] LABS: African American GFR (CKD) >90 (>60 ml/min/1.73 sqM); Anion Gap 9 mmol/L; Blood Urea Nitrogen 23 mg/dL (9-20); Calcium 8.5 mg/dL (8.4-10.2); Carbon Dioxide 26 mmol/L (22-30); Chloride 98 mmol/L (98-107); Glucose 118 mg/dL (74-99); Non-African American GFR(CKD) 89 (>60 ml/min/1.73 sqM); Potassium 3.3 mmol/L (3.5-5.1); Sodium 133 mmol/L (137-145)
[2023-07-31] MEDS: lisinopriL 20 MG TAB PO SCH ×2 (08:34→21:15)
[2023-07-31] MEDS: amLODIPine 5 MG TAB PO SCH (08:34)
[2023-07-31] MEDS: FENOFIBRATE 160 MG TAB PO SCH (08:34)
[2023-07-31] MEDS: busPIRone HCl 10 MG TAB PO SCH ×2 (08:34→21:15)
[2023-07-31] MEDS: METOPROLOL TARTRATE 50 MG TAB PO SCH ×2 (08:34→21:15)
[2023-07-31] MEDS: ATORVASTATIN 40 MG TAB PO SCH (08:34)
[2023-07-31] MEDS: TAMSULOSIN 0.4 MG CAP.ER.24H PO SCH (08:52)
[2023-07-31] MEDS: POTASSIUM CHLORIDE ER 10 MEQ TAB.ER.PRT PO SCH ×2 (10:43→11:55)
[2023-07-31 11:09] LABS: Glucose,Whole Blood 153 mg/dL (70-110)
--- NOTE | 2023-07-31 12:06 | P.PN ---
Subjective Progress Note Date: 07/31/23 Principal diagnosis: Status post right anterior left total hip arthroplasty Patient was evaluated today at bedside, he is resting in his hospital bed. He does report improvement in his overall pain symptoms. Patient did have to undergo urinary straight catheterization due to retention, this was early this morning. Patient denies headaches, lightheadedness, chest pain or shortness of breath. Objective - Vital Signs Vital signs: Vital Signs Temp 99.0 F 07/31/23 06:55 Pulse 70 07/31/23 06:55 Resp 18 07/31/23 06:55 BP 153/72 07/31/23 06:55 Pulse Ox 91 L 07/31/23 08:46 FiO2 Intake & Output 07/30/23 07/31/23 07/31/23 18:59 06:59 18:59 Intake Total 1401 Output Total 205 1850 Balance 1196 -1850 Weight 106.7 kg Intake: IV 1401 Output: Urine 150 1850 Straight 1200 Estimated Blood Loss 55 - Exam Left lower extremity: Incision is clean, dry, and intact. The foam dressing is in good condition. There is minimal soft tissue swelling and ecchymosis surrounding the medial and lateral aspects of the incision. Calf is soft, no tenderness with palpation. Plantar flexion, dorsiflexion, EHL, FHL are intact. Sensory exam to light touch throughout the extremity is intact, dorsal pedis pulses 2+. - Labs CBC & Chem 7: 07/31/23 06:34 Labs: Abnormal Lab Results - Last 24 Hours (Table) 07/30/23 07/30/23 07/31/23 Range/Units 16:52 20:01 05:59 Sodium (137-145) mmol/L Potassium (3.5-5.1) mmol/L BUN (9-20) mg/dL Glucose (74-99) mg/dL POC Glucose (mg/dL) 157 H 130 H 124 H (70-110) mg/dL 07/31/23 07/31/23 Range/Units 06:34 11:07 Sodium 133 L (137-145) mmol/L Potassium 3.3 L (3.5-5.1) mmol/L BUN 23 H (9-20) mg/dL Glucose 118 H (74-99) mg/dL POC Glucose (mg/dL) 153 H (70-110) mg/dL Assessment and Plan Assessment: Postoperative day #1 status post direct anterior left total hip arthroplasty Plan: Pain control, continue with current medications DVT prophylaxis, continue subcu medication Flomax 0.4 mg daily has been started, monitor for urinary retention. May consider use of a catheterization and neurology follow-up pending outpatient as this afternoon PT/OT Encourage incentive spirometer Weight-bear as tolerated with walker Medical recommendations Discharge planning: Depending if patient is able to urinate with no difficulties, possible discharge home on 07/31/2023, we'll reassess later this afternoon Time with Patient: Less than 30
[2023-07-31] MEDS ORDERED: SENNOSIDES 8.6 MG TAB PO PRN (13:14)
[2023-07-31] MEDS ORDERED: DEXTROSE 50% SYRINGE 50 ML IVP PRN ×2 (16:00)
--- NOTE | 2023-07-31 16:05 | P.CONS ---
History of Present Illness - Reason for Consult Consult date: 07/31/23 - History of Present Illness This is a 67 year old male with medical history of sleep apnea with CPAP use, Diabetes mellitus, hypertension, hyperlipidemia, GERD, osteoarthritis, former smoker, and reports marijuana use. Patient admitted for left hip total arthroplasty and is evaluated today postoperative day #1. He reports pain is well controlled. He did not have his CPAP machine available last night for use and was placed on 2L nasal cannula overnight. He has no shortness of breath today. He states he is passing flatus, he has been up with physical therapy doing well and ok for D/C home with homecare. Surgery has been complicated by postoperative urinary retention he has been placed on flomax and did require strait catheterization. He continues to have bladder scan above 300 mls of urine. REVIEW OF SYSTEMS: CONSTITUTIONAL: No fever, no malaise, no fatigue. HEENT: No recent visual problems or hearing problems. Denied any sore throat. CARDIOVASCULAR: No chest pain, orthopnea, PND, no palpitations, no syncope. PULMONARY: No shortness of breath, no cough, no hemoptysis. GASTROINTESTINAL: No diarrhea, no nausea, no vomiting, no abdominal pain. NEUROLOGICAL: No headaches, no weakness, no numbness. HEMATOLOGICAL: Denies any bleeding or petechiae. GENITOURINARY: Denies any burning micturition, frequency, or urgency. MUSCULOSKELETAL/RHEUMATOLOGICAL: Denies any joint pain, swelling, or any muscle pain. ENDOCRINE: Denies any polyuria or polydipsia. The rest of the 14-point review of systems is negative. PHYSICAL EXAMINATION: GENERAL: The patient is alert and oriented x3, not in any acute distress. Well developed, well nourished. HEENT: Pupils are round and equally reacting to light. EOMI. No scleral icterus. No conjunctival pallor. Normocephalic, atraumatic. No pharyngeal erythema. No t hyromegaly. CARDIOVASCULAR: S1 and S2 present. No murmurs, rubs, or gallops. PULMONARY: Chest is clear to auscultation, no wheezing or crackles. ABDOMEN: Soft, nontender, nondistended, normoactive bowel sounds. No palpable organomegaly. MUSCULOSKELETAL: No joint swelling or deformity. Post surgical left hip dressing intact EXTREMITIES: No cyanosis, clubbing, or pedal edema. NEUROLOGICAL: Gross neurological examination did not reveal any focal deficits. SKIN: No rashes. Assessment Osteoarthritis postoperative day #1 left total hip arthroplasty Postoperative urinary retention History of obstructive sleep apnea with CPAP use Diabetes Mellitus type 2 Hypokalemia Hypertension Hyperlipidemia Gastroesophageal reflux disease Former smoker Marijuana use GI prophylaxis: Protonix DVT prophylaxis: As per primary Plan Continue on flomax Encourage incentive spirometer 10 x an hour while awake Replace potassium, repeat BMP in AM Resume aspirin 81 mg daily postoperatively Renal ultrasound Urology consultation for the urinary retention Thank you for this consultation we will continue to follow this hospital stay The impression and plan of care has been dictated by [facility] [address] Nurse Practitioner as directed. Dr. Martha MD I have performed a history and physical examination and medical decision making of this patient, discussed the same with the dictator, and agree with the dictators assessment and plan as written, documented as a scribe. Based on total visit time, I have performed more than 50% of this visit. Past Medical History Past Medical History: Diabetes Mellitus, GERD/Reflux, Hyperlipidemia, Hypertension, Osteoarthritis (OA) History of Any Multi-Drug Resistant Organisms: MRSA Year Discovered:: 2013 MDRO Source:: RT KNEE Past Surgical History: No Surgical Hx Reported Past Anesthesia/Blood Transfusion Reactions: Motion Sickness Past Psychological History: Anxiety Smoking Status: Former smoker Past Alcohol Use History: None Reported Additional Past Alcohol Use History / Comment(s): QUIT SMOKING 40 YEARS AGO Past Drug Use History: Marijuana Additional Drug Use History / Comment(s): USES MARIJUANA -INSTRUCTED TO REFRAIN FROM USE FOR AT LEAST 24 HOURS PRIOR TO PROCEDURE - Past Family History Mother Family Medical History: No Reported History Medications and Allergies Home Medications Medication Instructions Recorded Confirmed Type Atorvastatin Calcium [Lipitor] 40 mg PO DAILY 05/24/19 07/24/23 History Meloxicam [Mobic] 7.5 mg PO BID 05/24/19 07/24/23 History Metoprolol Tartrate [Lopressor] 100 mg PO BID 05/24/19 07/24/23 History Omeprazole 20 mg PO DAILY 05/24/19 07/24/23 History amLODIPine [Norvasc] 5 mg PO DAILY 05/24/19 07/24/23 History gemfibroziL [Lopid] 600 mg PO BID 05/24/19 07/24/23 History busPIRone HCl [Buspar] 10 mg PO BID 09/08/21 07/24/23 History Aspirin EC [Ecotrin Low Dose] 81 mg PO DAILY 09/16/21 07/24/23 History Potassium Chloride ER [K-Dur 20] 20 meq PO DAILY 07/24/23 07/24/23 History lisinopriL [Zestril] 20 mg PO BID 07/24/23 07/24/23 History Allergies Allergy/AdvReac Type Severity Reaction Status Date / Time erythromycin base Allergy Nausea & Verified 07/24/23 11:50 Vomiting codeine AdvReac Chest Pain Verified 07/24/23 11:50 Physical Exam Vitals: Vital Signs Temp Pulse Pulse Resp BP BP Pulse Ox 07/31/23 08:46 91 L 07/31/23 06:55 99.0 F 70 18 153/72 91 L 07/31/23 00:50 98.6 F 18 132/68 98 07/30/23 20:00 98.1 F 76 16 159/76 96 07/30/23 15:15 97.4 F L 66 19 159/71 92 L 07/30/23 14:25 74 16 159/72 95 07/30/23 14:00 60 16 159/70 98 07/30/23 13:00 59 L 16 159/80 92 L 07/30/23 12:45 57 L 16 158/80 93 L 07/30/23 12:30 56 L 16 154/65 93 L 07/30/23 12:15 60 16 172/90 93 L 07/30/23 12:00 56 L 16 172/75 94 L 07/30/23 11:45 56 L 16 164/70 07/30/23 11:30 65 16 178/82 93 L 07/30/23 11:19 67 17 172/79 93 L 07/30/23 11:05 64 15 171/76 94 L 07/30/23 10:49 58 L 17 177/71 94 L 07/30/23 10:35 55 L 17 170/80 94 L 07/30/23 10:20 64 17 163/79 96 07/30/23 10:05 65 15 183/86 94 L 07/30/23 09:50 63 17 188/91 94 L Intake and Output 07/30/23 07/31/23 07/31/23 22:59 06:59 14:59 Output Total 300 1700 Balance -300 -1700 Output: Urine 300 1700 Straight 1200 Results CBC & Chem 7: 07/31/23 06:34 Labs: Abnormal Lab Results - Last 24 Hours (Table) 07/30/23 07/30/23 07/31/23 Range/Units 16:52 20:01 05:59 Sodium (137-145) mmol/L Potassium (3.5-5.1) mmol/L BUN (9-20) mg/dL Glucose (74-99) mg/dL POC Glucose (mg/dL) 157 H 130 H 124 H (70-110) mg/dL 07/31/23 Range/Units 06:34 Sodium 133 L (137-145) mmol/L Potassium 3.3 L (3.5-5.1) mmol/L BUN 23 H (9-20) mg/dL Glucose 118 H (74-99) mg/dL POC Glucose (mg/dL) (70-110) mg/dL Assessment and Plan Time with Patient: Less than 30
[2023-07-31 16:11] LABS: Glucose,Whole Blood 166 mg/dL (70-110)
[2023-07-31] MEDS: INSULIN ASPART (NovoLOG) 100 UNIT/ML VIAL SQ SCH ×2 (17:01→21:15)
--- NOTE | 2023-07-31 17:13 | US ---
EXAMINATION TYPE: US kidneys/renal and bladder DATE OF EXAM: 07/31/2023 Exam done portable COMPARISON: NONE CLINICAL INDICATION: Male, 67 years old with history of urinary retention; EXAM MEASUREMENTS: Right Kidney: 12.9 x 5.9 x 5.4 cm Left Kidney: 11.8 x 6.5 x 4.9 cm Right Kidney: No hydronephrosis or masses seen Left Kidney: No hydronephrosis or masses seen Bladder: not distended, german catheter There is no evidence for hydronephrosis at this point in time. No nephrolithiasis is seen. No tru s are identified. The urinary bladder is anechoic. Bilateral ureteral jets are seen. IMPRESSION: No evidence for obstructive uropathy.
[2023-07-31 20:51] LABS: Glucose,Whole Blood 176 mg/dL (70-110)
[2023-08-01 05:50] LABS: Glucose,Whole Blood 157 mg/dL (70-110)
[2023-08-01] MEDS: INSULIN ASPART (NovoLOG) 100 UNIT/ML VIAL SQ SCH ×2 (06:35→12:08)
[2023-08-01] MEDS: PANTOPRAZOLE 40 MG TABLET PO SCH (06:35)
[2023-08-01] MEDS: LACTATED RINGERS 1,000 ML IV SCH (06:35)
[2023-08-01 07:30] VITALS: BP 178/81; PULSE 83; RESP 19; TEMP 98.7
[2023-08-01] MEDS: ATORVASTATIN 40 MG TAB PO SCH (08:10)
[2023-08-01] MEDS: FENOFIBRATE 160 MG TAB PO SCH (08:10)
[2023-08-01] MEDS: HYDROcodone/APAP 7.5-325MG 1 EACH TAB PO PRN (08:10)
[2023-08-01] MEDS: busPIRone HCl 10 MG TAB PO SCH (08:10)
[2023-08-01] MEDS: amLODIPine 5 MG TAB PO SCH (08:11)
[2023-08-01] MEDS: METOPROLOL TARTRATE 50 MG TAB PO SCH (08:11)
[2023-08-01] MEDS: lisinopriL 20 MG TAB PO SCH (08:11)
[2023-08-01] MEDS: TAMSULOSIN 0.4 MG CAP.ER.24H PO SCH (08:11)
[2023-08-01] MEDS ORDERED: POTASSIUM CHLORIDE ER 20 MEQ TAB.ER PO SCH (09:00)
[2023-08-01] MEDS ORDERED: ASPIRIN 81 MG PO SCH (09:00)
--- NOTE | 2023-08-01 10:08 | P.GSCN ---
History of Present Illness Consult date: 08/01/23 Reason for Consult: Urinary retention Requesting physician: Bernardo Robles History of present illness: The patient is a 67-year-old white male who underwent a left total hip arthroplasty in 07/30/2023. He has experienced difficulty voiding postoperatively, requiring straight catheterization. He now has an indwelling Beck catheter. One of the straight catheterization volumes was 1200 mL. I am consulted for this reason. The patient reports recent voiding difficulty. Specifically, he reports increased urinary frequency and a weak urinary stream. He states that he has noted lower abdominal distention. He denies any prior history of UTIs or urolithiasis. He has never been told he has an enlarged prostate. Review of Systems - Genitourinary Reports as per HPI Past Medical History Past Medical History: Diabetes Mellitus, GERD/Reflux, Hyperlipidemia, Hypertension, Osteoarthritis (OA) History of Any Multi-Drug Resistant Organisms: MRSA Year Discovered:: 2013 MDRO Source:: RT KNEE Past Surgical History: No Surgical Hx Reported Past Anesthesia/Blood Transfusion Reactions: Motion Sickness Past Psychological History: Anxiety Smoking Status: Former smoker Past Alcohol Use History: None Reported Additional Past Alcohol Use History / Comment(s): QUIT SMOKING 40 YEARS AGO Past Drug Use History: Marijuana Additional Drug Use History / Comment(s): USES MARIJUANA -INSTRUCTED TO REFRAIN FROM USE FOR AT LEAST 24 HOURS PRIOR TO PROCEDURE - Past Family History Mother Family Medical History: No Reported History Medications and Allergies Home Medications Medication Instructions Recorded Confirmed Type Atorvastatin Calcium [Lipitor] 40 mg PO DAILY 05/24/19 07/24/23 History Meloxicam [Mobic] 7.5 mg PO BID 05/24/19 07/24/23 History Metoprolol Tartrate [Lopressor] 100 mg PO BID 05/24/19 07/24/23 History Omeprazole 20 mg PO DAILY 05/24/19 07/24/23 History amLODIPine [Norvasc] 5 mg PO DAILY 05/24/19 07/24/23 History gemfibroziL [Lopid] 600 mg PO BID 05/24/19 07/24/23 History busPIRone HCl [Buspar] 10 mg PO BID 09/08/21 07/24/23 History Aspirin EC [Ecotrin Low Dose] 81 mg PO DAILY 09/16/21 07/24/23 History Potassium Chloride ER [K-Dur 20] 20 meq PO DAILY 07/24/23 07/24/23 History lisinopriL [Zestril] 20 mg PO BID 07/24/23 07/24/23 History Allergies Allergy/AdvReac Type Severity Reaction Status Date / Time erythromycin base Allergy Nausea & Verified 07/24/23 11:50 Vomiting codeine AdvReac Chest Pain Verified 07/24/23 11:50 Surgical - Exam Vital Signs Temp Pulse Resp BP Pulse Ox 97.3 F L 63 16 210/101 96 07/30/23 06:26 07/30/23 06:26 07/30/23 06:26 07/30/23 06:26 07/30/23 06:26 - General well developed, well nourished, no distress - Respiratory normal respiratory effort - Abdomen Abdomen: soft, non tender, no guarding, no rigid, no rebound Hernia: umbilical - Genitourinary normal penis with no external lesions, testicles non-tender - Rectum Deferred due to recent surgery. - Psychiatric oriented to time, oriented to person, oriented to place, speech is normal, memory intact Results - Labs 07/31/23 06:34 Abnormal Lab Results - Last 24 Hours (Table) 07/31/23 07/31/23 07/31/23 Range/Units 11:07 16:09 20:47 POC Glucose (mg/dL) 153 H 166 H 176 H (70-110) mg/dL 08/01/23 Range/Units 05:47 POC Glucose (mg/dL) 157 H (70-110) mg/dL Assessment and Plan (1) Urinary retention Current Visit: Yes Status: Acute Code(s): R33.9 - RETENTION OF URINE, UNSPECIFIED SNOMED Code(s): 516457037 Plan: I had a lengthy discussion with the patient regarding his urinary retention. Based on his history, I suspect that this was pre-existing as he reports difficulty urinating for the past several weeks. I explained to him that his bladder was overdistended, and that he will require an indwelling Beck catheter to allow his bladder to rest and regain tone. It would thus be my recommendation that he be discharged home with the Beck catheter, and that he be given a prescription for tamsulosin. He will follow up with me in 1 week. He was instructed to remove the catheter 12 hours prior to his appointment. Thank you for allowing me to put a straight Mr. Rowe's care. Please notify me if I can be of any further assistance. Time with Patient: Greater than 30
[2023-08-01 11:02] LABS: African American GFR (CKD) >90 (>60 ml/min/1.73 sqM); Anion Gap 10 mmol/L; Blood Urea Nitrogen 15 mg/dL (9-20); Calcium 9.6 mg/dL (8.4-10.2); Carbon Dioxide 30 mmol/L (22-30); Chloride 95 mmol/L (98-107); Glucose 142 mg/dL (74-99); Non-African American GFR(CKD) >90 (>60 ml/min/1.73 sqM); Potassium 3.3 mmol/L (3.5-5.1); Sodium 135 mmol/L (137-145)
[2023-08-01 11:19] LABS: Glucose,Whole Blood 234 mg/dL (70-110)
--- NOTE | 2023-08-01 12:00 | P.PN ---
Subjective Progress Note Date: 08/01/23 Principal diagnosis: Status post right anterior left total hip arthroplasty Patient was evaluated today at bedside, he is resting in his hospital chair . Patient was evaluated by urology, they're recommending urinary catheter being placed in the next week. He has been started on Flomax at discharge. He states that the hip is feeling a lot better today. Patient denies headaches, lightheadedness, chest pain or shortness of breath. Objective - Vital Signs Vital signs: Vital Signs Temp 98.7 F 08/01/23 07:20 Pulse 83 08/01/23 07:20 Resp 19 08/01/23 07:20 BP 178/81 08/01/23 07:20 Pulse Ox 95 08/01/23 07:20 FiO2 Intake & Output 07/31/23 08/01/23 08/01/23 18:59 06:59 18:59 Output Total 4955 [id number] [id number] Balance -1700 -900 -1600 Output: Urine 1582 [id number] [id number] Other: Voiding Method Indwelling Catheter Indwelling Catheter - Exam Left lower extremity: Incision is clean, dry, and intact. The foam dressing is in good condition. There is minimal soft tissue swelling and ecchymosis surrounding the medial and lateral aspects of the incision. Calf is soft, no tenderness with palpation. Plantar flexion, dorsiflexion, EHL, FHL are intact. Sensory exam to light touch throughout the extremity is intact, dorsal pedis pulses 2+. - Labs CBC & Chem 7: 08/01/23 05:45 Labs: Abnormal Lab Results - Last 24 Hours (Table) 07/31/23 07/31/23 08/01/23 Range/Units 16:09 20:47 05:45 Sodium 135 L (137-145) mmol/L Potassium 3.3 L (3.5-5.1) mmol/L Chloride 95 L (98-107) mmol/L Glucose 142 H (74-99) mg/dL POC Glucose (mg/dL) 166 H 176 H (70-110) mg/dL Hemoglobin A1c (<=6.0) % 08/01/23 08/01/23 08/01/23 Range/Units 05:47 07:36 11:17 Sodium (137-145) mmol/L Potassium (3.5-5.1) mmol/L Chloride (98-107) mmol/L Glucose (74-99) mg/dL POC Glucose (mg/dL) 157 H 234 H (70-110) mg/dL Hemoglobin A1c 6.4 H (<=6.0) % Assessment and Plan Assessment: Postoperative day #2 status post direct anterior left total hip arthroplasty Urinary retention Plan: Pain control, plan for discharge on [place] 7.5 mg/325 mg. We'll also prescribe stool softeners DVT prophylaxis, aspirin 81 mg twice a day for 30 days of discharge Urology recommendations appreciated, plan for follow-up in 1 week PT/OT Encourage incentive spirometer Weight-bear as tolerated with walker Medical recommendations Discharge planning: Discharged to home today Time with Patient: Less than 30
--- NOTE | 2023-08-01 12:04 | P.DS ---
Providers Date of admission: 07/30/2023 Expected date of discharge: 08/01/23 Attending physician: Bernardo Robles Consults: 07/30/23 14:54 Consult Physician Routine Consulting Provider: Joseluis Huerta Consult Reason/Comments: Medical Management Do you want consulting provider notified?: Yes 07/31/23 13:11 Consult Physician Routine Consulting Provider: Todd Abraham Consult Reason/Comments: urinary retention Do you want consulting provider notified?: Yes Primary care physician: Radha Herrera Hospital Course: Date of admission: 07/30/2023 Date of discharge: 08/01/2023 Admission diagnosis: Status post direct anterior left total hip arthroplasty Discharge diagnosis: Same, urinary retention Attending physician: Dr. Robles Surgical procedures: Direct anterior left total hip arthroplasty Brief history: Patient is a 67-year-old male with a history of progressive primary left hip osteoarthritis. At this point patient has failed conservative treatment measures and has opted to proceed with a elective left direct anterior total hip arthroplasty. Hospital course: Details of patient's surgery can be found in operative report. Patient tolerated the procedure well and was subsequently transported to orthopedic floor. Patient's orthopeidc and medical care was provided daily. Patient had daily laboratory tests performed for evaluation of overall blood counts. Patient had daily physical therapy to include strengthening range of motion as well as education with walker ambulation. Patient was treated with Lovenox for their postoperative DVT prophylaxis during their inpatient stay. Patient was noted to have a relatively uneventful postoperative course. Patient reported satisfactory pain control with oral pain medications by postoperative day 1. Patient showed satisfactory progress with physical therapy. Patient moved steadily through the program and had no difficulty meeting the goals by postoperative day 2. Given patient's otherwise satisfactory course and having met physical therapy goals, plan is to discharge patient home on postoperative day 2. Discharge condition/disposition: Patient will be discharged home in stable condition. Discharge medications: Instructions are given on resumption of patient's normal daily medications per primary care recommendation, in addition patient will be prescribed Eastview 7.5 mg/325 mg, MiraLAX 17 g, aspirin 81 mg, Flomax 0.4 mg. Discharge instructions: 1. Wound care and infection precautions, keep incision dry and covered while showering, no lotions, creams, moisturizers. No soaking, tubs, pools, hottubs. Do not scrub over the incision. 2. Weight-bear as tolerated with walker / cane until follow-up. 3. Ice and elevate when necessary. Do not exceed 20 minutes per hour with ice pack. 4. Utilize compression sleeve until seen at first follow up appointment. 5. Visiting nursing care. 6. Home physical therapy. 7. Pain meds and anticoagulants per prescription. 8. Pain medication has potential to cause constipation. Increase oral fluid and fiber intake. Contact primary care provider if you have not had a bowel movement within 48 hours after discharge 9. No anti-inflammatory medication until discussed at first post operative visit, this including Motrin, Aleve, Mobic, Diclofenac, Aspirin. 10. Follow up in office at 2 weeks postop with Ajith Tian PA-C/Sukumar Shipley 11. Follow up with your primary care doctor 7-10 days after discharge. 12. Contact [facility] with any questions, . Procedures: Direct anterior left total hip arthroplasty Patient Condition at Discharge: Good Plan - Discharge Summary Discharge Rx Participant: Yes New Discharge Prescriptions: New polyethylene glycoL 3350 [Miralax] 17 gm PO DAILY PRN #21 packet PRN Reason: Constipation Tamsulosin [Flomax] 0.4 mg PO DAILY #30 cap Aspirin [Adult Low Dose Aspirin EC] 81 mg PO BID #60 tab HYDROcodone/APAP 7.5-325MG [Eastview 7.5] 1 each PO Q6HR PRN #28 tab PRN Reason: Pain No Action amLODIPine [Norvasc] 5 mg PO DAILY Metoprolol Tartrate [Lopressor] 100 mg PO BID Omeprazole 20 mg PO DAILY Meloxicam [Mobic] 7.5 mg PO BID gemfibroziL [Lopid] 600 mg PO BID Atorvastatin Calcium [Lipitor] 40 mg PO DAILY busPIRone HCl [Buspar] 10 mg PO BID Aspirin EC [Ecotrin Low Dose] 81 mg PO DAILY lisinopriL [Zestril] 20 mg PO BID Potassium Chloride ER [K-Dur 20] 20 meq PO DAILY Discharge Medication List Atorvastatin Calcium [Lipitor] 40 mg PO DAILY 05/24/19 [History] Meloxicam [Mobic] 7.5 mg PO BID 05/24/19 [History] Metoprolol Tartrate [Lopressor] 100 mg PO BID 05/24/19 [History] Omeprazole 20 mg PO DAILY 05/24/19 [History] amLODIPine [Norvasc] 5 mg PO DAILY 05/24/19 [History] gemfibroziL [Lopid] 600 mg PO BID 05/24/19 [History] busPIRone HCl [Buspar] 10 mg PO BID 09/08/21 [History] Aspirin EC [Ecotrin Low Dose] 81 mg PO DAILY 09/16/21 [History] Potassium Chloride ER [K-Dur 20] 20 meq PO DAILY 07/24/23 [History] lisinopriL [Zestril] 20 mg PO BID 07/24/23 [History] Aspirin [Adult Low Dose Aspirin EC] 81 mg PO BID #60 tab 08/01/23 [Rx] HYDROcodone/APAP 7.5-325MG [[place]view 7.5] 1 each PO Q6HR PRN #28 tab 08/01/23 [Rx] Tamsulosin [Flomax] 0.4 mg PO DAILY #30 cap 08/01/23 [Rx] polyethylene glycoL 3350 [Miralax] 17 gm PO DAILY PRN #21 packet 08/01/23 [Rx] Follow up Appointment(s)/Referral(s): Todd Abraham MD [STAFF PHYSICIAN] - 1 Week Bernardo Robles DO [Doctor of Osteopathic Medicine] - 08/14/23 9:40 am (Happy Thanksgiving!) Radha Herrera MD [Primary Care Provider] - 1 Week Patient Instructions/Handouts: *Surgery [facility] - (Anesthesia) Discharge Instructions Outpatient Surgery, How to Use an Incentive Spirometer (DC), Surgical Site Infections (DC), Joint Replacement Surgery (DC), Anterior Hip Replacement (DC) Activity/Diet/Wound Care/Special Instructions: Orthopedic Discharge Instructions: 1. Wound care and infection precautions, keep incision dry and covered while showering, no lotions, creams, moisturizers. No soaking, pools, hot tubs. Do not scrub over incision. 2. Weight-bear as tolerated with walker / cane until follow-up. 3. Ice and elevate when necessary. Do not exceed 20 minutes per hour with ice pack. 4. Utilize compression sleeve until seen at first follow up appointment. 5. Pain meds and anticoagulants per prescription. 6. Pain medication has potential to cause constipation. Increase oral fluid and fiber intake. Contact primary care provider if you have not had a bowel movement within 48 hours after discharge. 7. No anti-inflammatory medication until discussed at first post operative visit, this including Motrin, Aleve, Mobic, Diclofenac. 8. Follow up in office at 2 weeks postop with Ajith Tian PA-C/Sukumar Aly PA-C 9. Follow up with your primary care doctor 7-10 days after discharge. 10. Contact [facility] with any questions, . Wound care instructions: 1. Okay to remove surgical dressing as of 08/06/2023 2. Okay to shower directly over incision after removal of dressing Urology Discharge Instructions: - Discharge home with Beck catheter. - Follow-up with Dr. Abraham in 1 week. - Instruct patient to remove Beck catheter 12 hours prior to follow-up appointment with Dr. Abraham. Discharge Disposition: HOME WITH HOME HEALTH SERVICES
--- NOTE | 2023-08-01 15:34 | P.PN ---
Subjective Progress Note Date: 08/01/23 This is a 67 year old male with medical history of sleep apnea with CPAP use, Diabetes mellitus, hypertension, hyperlipidemia, GERD, osteoarthritis, former smoker, and reports marijuana use. Patient admitted for left hip total arthroplasty and is evaluated today postoperative day #1. He reports pain is wel l controlled. He did not have his CPAP machine available last night for use and was placed on 2L nasal cannula overnight. He has no shortness of breath today. He states he is passing flatus, he has been up with physical therapy doing well and ok for D/C home with homecare. Surgery has been complicated by postoperative urinary retention he has been placed on flomax and did require strait catheteriz ation. He continues to have bladder scan above 300 mls of urine. 08/01/2023 Patient is evaluated today postoperative day#2 left total hip arthroplasty, reports minimal pain. He has been up ambulating. Indwelling catheter placed for retention, urology in to see the patient and recommending to continue with the german for 1 week and also has been started on flomax. Patient to continue all same home medications and recommended to continue on bowel regimen while using narcotic for pain management. Renal ultrasound showing no hydronephrosis. Continue on oral potassium daily. Review of Systems Constitutional: Denied any fatigue denied any fever. Cardio vascular: denied any chest pain, palpitations Gastrointestinal: denied any nausea, vomiting, diarrhea Pulmonary: Denied any shortness of breath cough Neurologic denied any new focal deficits All inpatient medications were reviewed and appropriate changes in these medications as dictated in the interval history and assessment and plan. PHYSICAL EXAMINATION: GENERAL: The patient is alert and oriented x3, not in any acute distress. Well developed, well nourished. HEENT: Pupils are round and equally reacting to light. EOMI. No scleral icterus. No conjunctival pallor. Normocephalic, atraumatic. No pharyngeal erythema. No thyromegaly. CARDIOVASCULAR: S1 and S2 present. No murmurs, rubs, or gallops. PULMONARY: Chest is clear to auscultation, no wheezing or crackles. ABDOMEN: Soft, nontender, nondistended, normoactive bowel sounds. No palpable organomegaly. MUSCULOSKELETAL: No joint swelling or deformity. Post surgical left hip dressing intact EXTREMITIES: No cyanosis, clubbing, or pedal edema. NEUROLOGICAL: Gross neurological examination did not reveal any focal deficits. SKIN: No rashes. Assessment Osteoarthritis postoperative day #2 left total hip arthroplasty Postoperative urinary retention History of obstructive sleep apnea with CPAP use Diabetes Mellitus type 2 Hypokalemia Hypertension Hyperlipidemia Gastroesophageal reflux disease Former smoker Marijuana use GI prophylaxis: Protonix DVT prophylaxis: As per primary Plan Continue on flomax Encourage incentive spirometer 10 x an hour while awake Discharged on aspirin 81 mg BID to continue for one month and than resume aspirin 81 mg daily Urology consultation for the urinary retention recommending to continue IDC and to see in the office in 1 week outpatient f/u. See PCP on follow. Medically patient is stable for discharge thank you for this consultation. The impression and plan of care has been dictated by Fara Street, Nurse Practitioner as directed. Dr. Martha MD I have performed a history and physical examination and medical decision making of this patient, discussed the same with the dictator, and agree with the dictators assessment and plan as written, documented as a scribe. Based on total visit time, I have performed more than 50% of this visit. Objective - Vital Signs Vital signs: Vital Signs Temp 98.7 F 08/01/23 07:20 Pulse 83 08/01/23 07:20 Resp 19 08/01/23 07:20 BP 178/81 08/01/23 07:20 Pulse Ox 95 08/01/23 07:20 FiO2 Intake & Output 07/31/23 08/01/23 08/01/23 18:59 06:59 18:59 Output Total 0418 875 [id number] Balance -1700 -900 -1600 Output: Urine 5940 123 0225 Other: Voiding Method Indwelling Catheter Indwelling Catheter - Labs CBC & Chem 7: 08/01/23 05:45 Labs: Abnormal Lab Results - Last 24 Hours (Table) 07/31/23 07/31/23 08/01/23 Range/Units 16:09 20:47 05:45 Sodium 135 L (137-145) mmol/L Potassium 3.3 L (3.5-5.1) mmol/L Chloride 95 L (98-107) mmol/L Glucose 142 H (74-99) mg/dL POC Glucose (mg/dL) 166 H 176 H (70-110) mg/dL Hemoglobin A1c (<=6.0) % 08/01/23 08/01/23 08/01/23 Range/Units 05:47 07:36 11:17 Sodium (137-145) mmol/L Potassium (3.5-5.1) mmol/L Chloride (98-107) mmol/L Glucose (74-99) mg/dL POC Glucose (mg/dL) 157 H 234 H (70-110) mg/dL Hemoglobin A1c 6.4 H (<=6.0) % Assessment and Plan Time with Patient: Less than 30
== END 2023-08-01 14:09 | disposition home health service (06) ==
LOC: OR 05:32 → 4SSUR 09:10 → OR 07-31 13:29 → 4SSUR 07-31 13:30 → OR 08-01 14:09
PROVIDERS: ADMIT Orthopaedic Surgery; ATTEND Orthopaedic Surgery
DX: M16.12 Unilateral primary osteoarthritis, left hip (principal); E11.9 Type 2 diabetes mellitus without complications; E78.5 Hyperlipidemia, unspecified; F41.9 Anxiety disorder, unspecified; F12.90 Cannabis use, unspecified, uncomplicated; G47.33 Obstructive sleep apnea (adult) (pediatric); I10 Essential (primary) hypertension; K21.9 Gastro-esophageal reflux disease without esophagitis; Z79.84 Long term (current) use of oral hypoglycemic drugs; Z87.891 Personal history of nicotine dependence; Z88.1 Allergy status to other antibiotic agents; Z88.5 Allergy status to narcotic agent; Z96.642 Presence of left artificial hip joint; Z79.899 Other long term (current) drug therapy
CPT/HCPCS: 27130; 94760; 97116; 97161; 64447; 80048; 73501; 76770; C1776; J2250; J0360; J1100; J0690 ×2; J2405; J3490; J1885; J1170; J3010; 83036

== ENCOUNTER 2023-08-04 03:11 | Emergency (ER) | payer MEDICARE ==
[2023-08-04 03:38] VITALS: RESP 18
[2023-08-04 04:28] LABS: Basophils % (A) 0 %; Eosinophils # (A) 0.3 k/uL (0-0.7); Eosinophils % (A) 2 %; HCT 35.2 % (39.0-53.0); HGB 12.4 gm/dL (13.0-17.5); Lymphocytes # (A) 1.2 k/uL (1.0-4.8); Lymphocytes % (A) 10 %; MCH 31.4 pg (25.0-35.0); MCHC 35.4 g/dL (31.0-37.0); MCV 88.7 fL (80.0-100.0); Mean Platelet Volume 8.3; Monocytes # (A) 0.7 k/uL (0-1.0); Monocytes % (A) 6 %; Neutrophils # (A) 9.1 k/uL (1.3-7.7); Neutrophils % (A) 79 %; Platelet Count 332 k/uL (150-450); Poikilocytosis Slight; RBC 3.97 m/uL (4.30-5.90); WBC 11.4 k/uL (3.8-10.6)
[2023-08-04 04:32] LABS: Appearance,Urine Clear (Clear); Bilirubin,Urine Negative (Negative); Blood,Urine Negative (Negative); Color,Urine Colorless; Glucose,Urine (UA) 1+ (Negative); Ketones,Urine Negative (Negative); Leukocyte Esterase,Urine Negative (Negative); Nitrite,Urine Negative (Negative); Protein,Urine Trace (Negative); Specific Gravity,Urine 1.011 (1.001-1.035); Urobilinogen,Urine <2.0 mg/dL (<2.0)
[2023-08-04 04:39] LABS: ALT 37 U/L (4-49); AST 45 U/L (17-59); African American GFR (CKD) >90 (>60 ml/min/1.73 sqM); Albumin 3.9 g/dL (3.5-5.0); Alkaline Phosphatase 80 U/L (38-126); Amylase 35 U/L (30-110); Anion Gap 11 mmol/L; Blood Urea Nitrogen 16 mg/dL (9-20); Calcium 9.3 mg/dL (8.4-10.2); Carbon Dioxide 26 mmol/L (22-30); Chloride 99 mmol/L (98-107); Glucose 151 mg/dL (74-99); Lipase 89 U/L (23-300); Non-African American GFR(CKD) 86 (>60 ml/min/1.73 sqM); Potassium 3.4 mmol/L (3.5-5.1); Sodium 136 mmol/L (137-145); Total Bilirubin 0.9 mg/dL (0.2-1.3); Total Protein 6.7 g/dL (6.3-8.2)
[2023-08-04] MEDS ORDERED: SODIUM CHLORIDE 0.9% 1,000 ML IV ONE (05:47)
--- NOTE | 2023-08-04 06:02 | CT ---
EXAM: CT Abdomen and Pelvis With Intravenous Contrast CLINICAL HISTORY: ITS.REASON CT Reason: abdominal pain TECHNIQUE: Axial computed tomography images of the abdomen and pelvis with intravenous contrast. CTDI is 30.5 mGy and DLP is 1546.8 mGy-cm. This CT exam was performed using one or more of the following dose reduction techniques: automated exposure control, adjustment of the mA and/or kV according to patient size, and/or use of iterative reconstruction technique. COMPARISON: No relevant prior studies available. FINDINGS: Lung bases: Unremarkable. No mass. No consolidation. Heart: Moderate cardiomegaly. ABDOMEN: Liver: Unremarkable. No mass. Gallbladder and bile ducts: Gallbladder mildly distended with suspected trace surrounding inflammatory change. No calcified stones. No ductal dilation. Pancreas: Unremarkable. No mass. No ductal dilation. Spleen: Unremarkable. No splenomegaly. Adrenals: Unremarkable. No mass. Kidneys and ureters: Unremarkable. No solid mass. No hydronephrosis. Stomach and bowel: Prominent colonic diverticula without evidence of diverticulitis. No obstruction. PELVIS: Appendix: No findings to suggest acute appendicitis. Bladder: Urinary bladder decompressed by Beck catheter. Reproductive: Unremarkable as visualized. ABDOMEN and PELVIS: Intraperitoneal space: Unremarkable. No free air. No significant fluid collection. Bones/joints: Streak artifact from left hip arthroplasty limits evaluation of the adjacent structures. Multiple punctate foci of gas is seen adjacent to the left hip arthroplasty and within the subcutaneous fat along the left hip. Finding is nonspecific. Correlate with surgical history and/or physical exam findings for signs of infection. Evaluation limited in the absence of clinical history. No acute fracture. No dislocation. Soft tissues: Fat-containing umbilical hernia measuring up to 5 cm. Vasculature: Mild atherosclerosis. No abdominal aortic aneurysm. Lymph nodes: No enlarged lymph nodes. IMPRESSION: Gallbladder mildly distended with suspected trace surrounding inflammatory change. Right upper quadrant ultrasound could further evaluate. Multiple punctate foci of gas is seen adjacent to the left hip arthroplasty and within the subcutaneous fat along the left hip. Finding is nonspecific. Correlate with surgical history and/or physical exam findings for signs of infection. Evaluation limited in the absence of clinical history. Prominent colonic diverticula without evidence of diverticulitis. Fat-containing umbilical hernia measuring up to 5 cm.
[2023-08-04 07:16] VITALS: TEMP 98.2
--- NOTE | 2023-08-04 08:01 | US ---
EXAMINATION TYPE: US abdomen limited DATE OF EXAM: 08/04/2023 COMPARISON: NONE CLINICAL INDICATION: Male, 67 years old with history of attention RUQ; Abd pain and cannot eat x 1-2 days, abn GB on CT TECHNIQUE: Multiple sonographic images of the right upper quadrant are obtained. FINDINGS: EXAM MEASUREMENTS: Liver Length: 19.6 cm Gallbladder Wall: 0.5 cm CBD: 0.6 cm Right Kidney: 14.1 x 4.8 x 5.7 cm Pancreas: portion seen appears wnl Liver: enlarged and difficult to penetrate Gallbladder: thickened wall with dependant sludge appearance and cholecystic gutter fluid noted Evidence for sonographic Hinton's sign: YES CBD: wnl Right Kidney: large in size, otherwise wnl IMPRESSION: 1. Hepatomegaly with underlying hepatic steatosis. 2. Gallbladder wall thickening with pericholecystic fluid and dependent gallbladder sludge. Correlate for acute cholecystitis.
--- NOTE | 2023-08-04 08:20 | ED ---
Abdominal Pain HPI - General Chief Complaint: Abdominal Pain Stated Complaint: abd pain back pain Time Seen by Provider: 08/04/23 03:37 Source: patient Mode of arrival: ambulatory Limitations: no limitations - History of Present Illness Initial Comments: 's patient is a 67-year-old man who presents to evaluation for abdominal pain. He indicates all across the upper abdomen. The patient's is concerned that he may be constipated as he has not had a bowel movement a number days. He notes that he did have a hip surgery recently and wonders if this had contributed. Patient denies fever or chills. There is nausea. No change in urination. No bowel movement going back or 3 days now. MD Complaint: abdominal pain -: hour(s) Location: LUQ, RUQ, epigastric Radiation: none Migration to: no migration Severity: moderate Quality: aching Consistency: constant Improves With: nothing Worsens With: nothing Associated Symptoms: constipation - Related Data Home Medications Medication Instructions Recorded Confirmed Atorvastatin Calcium [Lipitor] 40 mg PO DAILY 05/24/19 07/24/23 Meloxicam [Mobic] 7.5 mg PO BID 05/24/19 07/24/23 Metoprolol Tartrate [Lopressor] 100 mg PO BID 05/24/19 07/24/23 Omeprazole 20 mg PO DAILY 05/24/19 07/24/23 amLODIPine [Norvasc] 5 mg PO DAILY 05/24/19 07/24/23 gemfibroziL [Lopid] 600 mg PO BID 05/24/19 07/24/23 busPIRone HCl [Buspar] 10 mg PO BID 09/08/21 07/24/23 Potassium Chloride ER [K-Dur 20] 20 meq PO DAILY 07/24/23 07/24/23 lisinopriL [Zestril] 20 mg PO BID 07/24/23 07/24/23 Previous Rx's Medication Instructions Recorded Aspirin EC [Ecotrin Low Dose] 81 mg PO DAILY #0 08/01/23 Aspirin [Adult Low Dose Aspirin EC] 81 mg PO BID #60 tab 08/01/23 HYDROcodone/APAP 7.5-325MG [[place] 1 each PO Q6HR PRN #28 tab 08/01/23 7.5] Tamsulosin [Flomax] 0.4 mg PO DAILY #30 cap 08/01/23 polyethylene glycoL 3350 [Miralax] 17 gm PO DAILY PRN #21 packet 08/01/23 Allergies Allergy/AdvReac Type Severity Reaction Status Date / Time erythromycin base Allergy Nausea & Verified 07/24/23 11:50 Vomiting codeine AdvReac Chest Pain Verified 07/24/23 11:50 Review of Systems ROS Statement: Those systems with pertinent positive or pertinent negative responses have been documented in the HPI. ROS Other: All systems not noted in ROS Statement are negative. Constitutional: Denies: fever, chills, weakness Respiratory: Denies: cough, dyspnea Cardiovascular: Denies: chest pain, palpitations, edema Gastrointestinal: Reports: abdominal pain, nausea, constipation. Denies: vomiting, diarrhea, melena, hematochezia Genitourinary: Denies: dysuria, frequency, hematuria, testicular pain, testicular mass Musculoskeletal: Denies: back pain Skin: Denies: rash Neurological: Denies: headache, weakness, numbness Past Medical History Past Medical History: Diabetes Mellitus, GERD/Reflux, Hyperlipidemia, Hypertension, Osteoarthritis (OA) History of Any Multi-Drug Resistant Organisms: MRSA Date of last positivie culture/infection: 2013 MDRO Source:: RT KNEE Past Surgical History: Joint Replacement Past Anesthesia/Blood Transfusion Reactions: Motion Sickness Past Psychological History: Anxiety Smoking Status: Former smoker Past Alcohol Use History: None Reported Past Drug Use History: Marijuana - Past Family History Mother Family Medical History: No Reported History General Exam Limitations: no limitations General appearance: alert, in no apparent distress Head exam: Present: atraumatic, normocephalic Eye exam: Present: normal appearance. Absent: scleral icterus, conjunctival injection Respiratory exam: Present: normal lung sounds bilaterally. Absent: respiratory distress, wheezes, rales, rhonchi, stridor Cardiovascular Exam: Present: regular rate, normal rhythm, normal heart sounds. Absent: systolic murmur, diastolic murmur, rubs, gallop GI/Abdominal exam: Present: soft, tenderness (Epigastric and right upper). Absent: distended, guarding, rebound, rigid, mass, pulsatile mass Extremities exam: Present: normal inspection, normal capillary refill. Absent: pedal edema, calf tenderness Back exam: Present: normal inspection Neurological exam: Present: alert Skin exam: Present: warm, dry, intact, normal color. Absent: rash Course Vital Signs 08/04/23 08/04/23 08/04/23 03:24 03:39 04:00 Temperature 98.3 F Pulse Rate 90 88 Respiratory 18 Rate Blood Pressure 203/75 189/96 O2 Sat by Pulse 98 98 96 Oximetry 08/04/23 08/04/23 08/04/23 05:00 06:50 08:34 Temperature 98.2 F Pulse Rate 81 86 99 Respiratory 18 18 Rate Blood Pressure 191/97 184/89 179/88 O2 Sat by Pulse 98 95 99 Oximetry Medical Decision Making - Medical Decision Making Patient is 67-year-old man here with abdominal pain, mainly upper. On the exam there is some tenderness in the epigastric and right upper quadrant and therefore patient had additional imaging for possible biliary. There is concern on the imaging that there may be cholecystitis. I discussed this with the patient but he was feeling better and wanted to go home. He did agree to follow up with surgeon. We reviewed the return parameters and he will return if the pain recurs if there is fever if there is vomiting, jaundice, or any other symptoms. Was pt. sent in by a medical professional or institution (, PA, ART TRACER, urgent care, hospital, or long-term...) When possible be specific @ -[No] Did you speak to anyone other than the patient for history (EMS, parent, family, police, friend...)? What history was obtained from this source @ -[No] Did you review nursing and triage notes (agree or disagree)? Why? @ -[I reviewed and agree with nursing and triage notes] Were old charts reviewed (outside hosp., previous admission, EMS record, old EKG, old radiological studies, urgent care reports/EKG's, long-term records)? Report findings @ -[No old charts were reviewed] Differential Diagnosis (chest pain, altered mental status, abdominal pain women, abdominal pain men, vaginal bleeding, weakness, fever, dyspnea, syncope, headache, dizziness, GI bleed, back pain, seizure, CVA, palpatations, mental health, musculoskeletal)? @ -[Differential Abdominal Pain Men: Appendicitis, cholecystitis, diverticulosis, ischemic bowel, pancreatitis, hepatitis, UTI, gastroenteritis, AAA, incarcerated hernia, bowel obstruction, constipation, inflammatory bowel, hepatitis, peptic ulcer disease, splenic infarction, perforated viscus, testicular torsion, this is not meant to be an all-inclusive list EKG interpreted by me (3pts min.). @ -[As above] X-rays interpreted by me (1pt min.). @ -[None done] CT interpreted by me (1pt min.). @ -[None done] U/S interpreted by me (1pt. min.). @ -[None done] What testing was considered but not performed or refused? (CT, X-rays, U/S, labs)? Why? @ -[None] What meds were considered but not given or refused? Why? @ -[None] Did you discuss the management of the patient with other professionals (professionals i.e. Dr., PA, ART TRACER, lab, RT, psych nurse, social sciences department chair, dairy products maker, teacher, admissions officer, manager of case management)? Give summary @ -[No] Was smoking cessation discussed for >3mins.? @ -[No] Was critical care preformed (if so, how long)? @ -[No] Were there social determinants of health that impacted care today? How? (Homelessness, low income, unemployed, alcoholism, drug addiction, transportation, low edu. Level, literacy, decrease access to med. care, skilled nursing, rehab)? @ -[No] Was there de-escalation of care discussed even if they declined (Discuss DNR or withdrawal of care, Hospice)? DNR status @ -[No] What co-morbidities impacted this encounter? (DM, HTN, Smoking, COPD, CAD, Cancer, CVA, ARF, Chemo, Hep., AIDS, mental health diagnosis, sleep apnea, mo rbid obesity)? @ -[None] Was patient admitted / discharged? Hospital course, mention meds given and route, prescriptions, significant lab abnormalities, going to OR and other pertinent info. @ -[See above Undiagnosed new problem with uncertain prognosis? @ -[No] Drug Therapy requiring intensive monitoring for toxicity (Heparin, Nitro, Insulin, Cardizem)? @ -[No] Were any procedures done? @ -[No] Diagnosis/symptom? @ -[Acute abdominal pain Possible cholecystitis Acute, or Chronic, or Acute on Chronic? @ -[Acute Uncomplicated (without systemic symptoms) or Complicated (systemic symptoms)? @ -[Uncomplicated Side effects of treatment? @ -[No] Exacerbation, Progression, or Severe Exacerbation? @ -[No] Poses a threat to life or bodily function? How? (Chest pain, [place], AR, pneumonia, PE, COPD, DKA, ARF, appy, cholecystitis, CVA, Diverticulitis, Homicidal, Suicidal, threat to staff... and all critical care pts) @ -[Yesterday maybe a threat to life if acute cholecystitis left untreated - Lab Data Result diagrams: 08/04/23 04:10 08/04/23 04:10 Lab Results 08/04/23 08/04/23 08/04/23 Range/Units 04:10 04:10 04:10 WBC 11.4 H (3.8-10.6) k/uL RBC 3.97 L (4.30-5.90) m/uL Hgb 12.4 L (13.0-17.5) gm/dL Hct 35.2 L (39.0-53.0) % MCV 88.7 (80.0-100.0) fL MCH 31.4 (25.0-35.0) pg MCHC 35.4 (31.0-37.0) g/dL RDW 14.0 (11.5-15.5) % Plt Count 332 (150-450) k/uL MPV 8.3 Neutrophils % 79 % Lymphocytes % 10 % Monocytes % 6 % Eosinophils % 2 % Basophils % 0 % Neutrophils # 9.1 H (1.3-7.7) k/uL Lymphocytes # 1.2 (1.0-4.8) k/uL Monocytes # 0.7 (0-1.0) k/uL Eosinophils # 0.3 (0-0.7) k/uL Basophils # 0.0 (0-0.2) k/uL Poikilocytosis Slight Sodium 136 L (137-145) mmol/L Potassium 3.4 L (3.5-5.1) mmol/L Chloride 99 (98-107) mmol/L Carbon Dioxide 26 (22-30) mmol/L Anion Gap 11 mmol/L BUN 16 (9-20) mg/dL Creatinine 0.93 (0.66-1.25) mg/dL Est GFR (CKD-EPI)AfAm >90 (>60 ml/min/1.73 sqM) Est GFR (CKD-EPI)NonAf 86 (>60 ml/min/1.73 sqM) Glucose 151 H (74-99) mg/dL Lactic Ac Sepsis Rflx Plasma Lactic Acid Ilan (0.7-2.0) mmol/L Calcium 9.3 (8.4-10.2) mg/dL Total Bilirubin 0.9 (0.2-1.3) mg/dL AST 45 (17-59) U/L ALT 37 (4-49) U/L Alkaline Phosphatase 80 (38-126) U/L Total Protein 6.7 (6.3-8.2) g/dL Albumin 3.9 (3.5-5.0) g/dL Amylase 35 (30-110) U/L Lipase 89 (23-300) U/L Urine Color Colorless Urine Appearance Clear (Clear) Urine pH 7.0 (5.0-8.0) Ur Specific [place] 1.011 (1.001-1.035) Urine Protein Trace H (Negative) Urine Glucose (UA) 1+ H (Negative) Urine Ketones Negative (Negative) Urine Blood Negative (Negative) Urine Nitrite Negative (Negative) Urine Bilirubin Negative (Negative) Urine Urobilinogen <2.0 (<2.0) mg/dL Ur Leukocyte Esterase Negative (Negative) 08/04/23 08/04/23 Range/Units 04:10 05:28 WBC (3.8-10.6) k/uL RBC (4.30-5.90) m/uL Hgb (13.0-17.5) gm/dL Hct (39.0-53.0) % MCV (80.0-100.0) fL MCH (25.0-35.0) pg MCHC (31.0-37.0) g/dL RDW (11.5-15.5) % Plt Count (150-450) k/uL MPV Neutrophils % % Lymphocytes % % Monocytes % % Eosinophils % % Basophils % % Neutrophils # (1.3-7.7) k/uL Lymphocytes # (1.0-4.8) k/uL Monocytes # (0-1.0) k/uL Eosinophils # (0-0.7) k/uL Basophils # (0-0.2) k/uL Poikilocytosis Sodium (137-145) mmol/L Potassium (3.5-5.1) mmol/L Chloride (98-107) mmol/L Carbon Dioxide (22-30) mmol/L Anion Gap mmol/L BUN (9-20) mg/dL Creatinine (0.66-1.25) mg/dL Est GFR (CKD-EPI)AfAm (>60 ml/min/1.73 sqM) Est GFR (CKD-EPI)NonAf (>60 ml/min/1.73 sqM) Glucose (74-99) mg/dL Lactic Ac Sepsis Rflx Y Plasma Lactic Acid Ilan 2.3 H* (0.7-2.0) mmol/L Calcium (8.4-10.2) mg/dL Total Bilirubin (0.2-1.3) mg/dL AST (17-59) U/L ALT (4-49) U/L Alkaline Phosphatase (38-126) U/L Total Protein (6.3-8.2) g/dL Albumin (3.5-5.0) g/dL Amylase (30-110) U/L Lipase (23-300) U/L Urine Color Urine Appearance (Clear) Urine pH (5.0-8.0) Ur Specific [place] (1.001-1.035) Urine Protein (Negative) Urine Glucose (UA) (Negative) Urine Ketones (Negative) Urine Blood (Negative) Urine Nitrite (Negative) Urine Bilirubin (Negative) Urine Urobilinogen (<2.0) mg/dL Ur Leukocyte Esterase (Negative) Disposition Clinical Impression: Cholecystitis Disposition: LEFT AGAINST MEDICAL ADVICE Condition: Fair Instructions (If sedation given, give patient instructions): Cholecystitis (ED) Is patient prescribed a controlled substance at d/c from ED?: No Referrals: Radha Herrera MD [Primary Care Provider] - 1-2 days Anthony Wilson MD [STAFF PHYSICIAN] - 1-2 days
[2023-08-04 08:36] VITALS: BP 179/88; PULSE 99
== END 2023-08-04 08:47 | disposition left against medical advice (07) ==
LOC: EC 03:11
DX: K81.9 Cholecystitis, unspecified (principal); E11.9 Type 2 diabetes mellitus without complications; I10 Essential (primary) hypertension; E78.5 Hyperlipidemia, unspecified; K21.9 Gastro-esophageal reflux disease without esophagitis; F41.9 Anxiety disorder, unspecified; F12.90 Cannabis use, unspecified, uncomplicated; Z87.891 Personal history of nicotine dependence; Z79.899 Other long term (current) drug therapy; Z88.5 Allergy status to narcotic agent; Z88.1 Allergy status to other antibiotic agents; Z53.29 Procedure and treatment not carried out because of patient's decision for other reasons
CPT/HCPCS: 99284 ×2; 96360 ×2; 36415; 80053; 82150; 83605; 83690; 85025; 81003; 76705; 74177; Q9967

== ENCOUNTER → 2024-01-14 | Outpatient (CLI) | payer MEDICARE ==
--- NOTE | 2024-01-14 17:42 | NM ---
EXAMINATION TYPE: NM hepatobiliary w EF DATE OF EXAM: 01/14/2024 COMPARISON: NONE CLINICAL INDICATION: Male, 68 years old with history of EPIGASTRIC PAIN; TECHNIQUE: After the intravenous administration of 4.21 mCi Tc 99m Mebrofenin hepatobiliary scintigra phy is performed. Immediate images post injection. FINDINGS: There is satisfactory initial accumulation of tracer by the liver. The gallbladder is visualized wit hin 8 minutes. The small bowel activity is noted within 2 minutes. At one hour 8 ounces of oral ens ure plus is given to mimic CCK and gallbladder ejection fraction is calculated at 94 %, elevated abov e the expected range (35-80%). IMPRESSION: 1. No scintigraphic evidence for acute/chronic cholecystitis or biliary dyskinesia. 2. Elevated gallbladder ejection fraction at 94% may be seen with gallbladder hyperkinesis.
== END | disposition home or self-care (01) ==
LOC: RADNMMAIN 12:51
PROVIDERS: ATTEND Surgery
DX: R10.13 Epigastric pain (principal)
CPT/HCPCS: 78226; A9537

== ENCOUNTER 2024-05-19 06:47 | Day surgery (SDC) | payer MEDICARE ==
[~2024-05-19 06:47] MED LIST changes: -ACETAMINOPHEN TAB 500 MG TAB PO PRN; +LACTATED RINGERS 1,000 ML IV SCH; -MELOXICAM 7.5 MG TAB PO PRN; -TRANEXAMIC 1,000 MG/100ML-NACL 1,000 MG in SALINE 1 100ML.BAG IVPB PRN
[2024-05-19] MEDS: IV FLUID CONTINUATION 1,000 ML IV ONE (07:01)
[2024-05-19 07:07] VITALS: TEMP 97.1
[2024-05-19 07:23] LABS: Glucose,Whole Blood 118 mg/dL (70-110)
[2024-05-19] MEDS ORDERED: LIDOCAINE 1% INJ 10MG/ML (20 ML MDV) ONE (08:11)
[2024-05-19] MEDS ORDERED: PROPOFOL 10 MG/ML 20 ML VIAL IV ONE (08:11)
[2024-05-19 08:45] VITALS: RESP 16
[2024-05-19 08:54] VITALS: BP 120/68; PULSE 54
--- NOTE | 2024-05-19 15:31 | P.OP ---
Date of Procedure: 05/19/24 Preoperative Diagnosis: Screening Colonoscopy Postoperative Diagnosis: 1. Descending Colon Polyp 2. Diverticulosis 3. Grade IV Internal Hemorrhoids Procedure(s) Performed: Colonoscopy with Biopsy of Polyp Anesthesia: other (Sedation) Surgeon: Jefry Newby Pathology: other (Descending Colon Polyp Biopsy) Condition: stable Disposition: PACU Indications for Procedure: This is a 68 year old male who presents for Screening Colonoscopy. He denies hematochezia, melena, IBD, and family history of Colon Cancer. Description of Procedure: A physical exam was performed. Informed consent was obtained from the patient after explaining all of the risks (perforation, bleeding, infection and adverse effects to the medication), benefits and alternatives to the procedure which the patient appeared to understand and so stated. The patient was connected to the monitoring devices and placed in the left lateral position. Continuous oxygen was provided with a nasal cannula and IV medicine administered through an indwelling cannula. After adequate conscious sedation was achieved, a digital exam was performed which revealed large grade IV prolapsed internal hemorrhoids and the colonoscope introduced into the rectum and advanced under direct visualization to the terminal ileum. The terminal ileum was identified by visual landmarks. The scope was subsequently removed slowly while carefully examining the color, texture, anatomy and integrity of the mucosa on the way out. There was diverticulosis noted in the sigmoid colon and descending colon. There was a diminutive polyp noted in the descending colon and a cold snare biopsy of the polyp was performed. In the rectum, the scope was retroflexed to evaluate for internal hemorrhoids and anorectal pathology. There were again large prolapsed internal hemorrhoids appreciated. This concluded the procedure. The patient was subsequently transferred to the recovery area in satisfactory condition Recommendations: 1. Daily Fiber Supplement 2. Follow up in Dr Newby/Dr Royal office for polyp pathology results and to discuss hemorrhoid management 2. Repeat Colonoscopy in 3 years
== END 2024-05-19 09:18 | disposition home or self-care (01) ==
LOC: ORWHC2ENDO 06:47
PROVIDERS: ATTEND Surgery
DX: K63.5 Polyp of colon (principal); K57.30 Diverticulosis of large intestine without perforation or abscess without bleeding; K64.3 Fourth degree hemorrhoids; I10 Essential (primary) hypertension; E11.69 Type 2 diabetes mellitus with other specified complication; E78.5 Hyperlipidemia, unspecified; G47.33 Obstructive sleep apnea (adult) (pediatric); K21.9 Gastro-esophageal reflux disease without esophagitis; Z88.5 Allergy status to narcotic agent; Z88.1 Allergy status to other antibiotic agents; Z87.891 Personal history of nicotine dependence; Z79.82 Long term (current) use of aspirin; Z79.84 Long term (current) use of oral hypoglycemic drugs; Z79.899 Other long term (current) drug therapy
CPT/HCPCS: 45380; 88305

== ENCOUNTER 2024-08-06 10:40 | Day surgery (SDC) | payer MEDICARE ==
[2024-08-04 14:10] VITALS: BMI 35.6
[~2024-08-06 10:40] MED LIST changes: +LIDOCAINE 1% (10MG/ML) FOR IV START INTRADERMA PRN; +droPERidol 5 MG/2 ML VIAL IVP ONE
[2024-08-06] MEDS: IV FLUID CONTINUATION 1,000 ML IV ONE (10:55)
[2024-08-06] MEDS: OXYMETAZOLINE 0.05% NASL SPRAY 1 SPRAY BOTTLE EA NOSTRIL PRN (11:05)
[2024-08-06] MEDS: ONDANSETRON 4 MG/2 ML VIAL IVP ONE (11:07)
[2024-08-06 11:08] LABS: Glucose,Whole Blood 101 mg/dL (70-110)
[2024-08-06] MEDS: DEXAMETHASONE SOD PHOSPHATE 4 MG/ML 1 ML VIAL IV ONE (11:08)
[2024-08-06] MEDS: FAMOTIDINE 20 MG/2 ML VIAL IV PRN (11:08)
[2024-08-06] MEDS ORDERED: ePHEDrine 50 MG/ML 1 ML VIAL ONE (11:21)
[2024-08-06] MEDS ORDERED: LIDOCAINE 1% INJ 10MG/ML (20 ML MDV) ONE (11:21)
[2024-08-06] MEDS ORDERED: PROPOFOL 10 MG/ML 20 ML VIAL IV ONE (11:21)
[2024-08-06] MEDS ORDERED: NALOXONE 0.4 MG/ML 1 ML VIAL ONE (11:21)
[2024-08-06] MEDS ORDERED: fentaNYL (PF) 50 MCG/ML 2 ML AMP ONE (11:21)
[2024-08-06] MEDS ORDERED: GLYCOPYRROLATE 0.2 MG/ML 2 ML VIAL ONE (11:21)
[2024-08-06] MEDS ORDERED: MIDAZOLAM 2 MG/2 ML VIAL ONE (11:21)
[2024-08-06] MEDS ORDERED: SUCCINYLCHOLINE CHLORIDE 200 MG/10 ML VIAL IV ONE (11:21)
[2024-08-06] MEDS: LIDOCAINE 1%-EPI 1:100,000 20 ML VIAL SUBMUCOSAL ONE ×2 (11:40)
[2024-08-06] MEDS: BACITRACIN ZINC 500 UNIT/GM OINT 28.4 GM TUBE TOPICAL ONE ×2 (11:42→12:13)
--- NOTE | 2024-08-06 12:18 | P.OP ---
Date of Procedure: 08/06/24 Preoperative Diagnosis: deviated nasal septum Inferior turbinate hypertrophy Postoperative Diagnosis: same Procedure(s) Performed: septoplasty Outfracture and submucous resection of the inferior turbinates Anesthesia: [place] Surgeon: Giovany Yoon Estimated Blood Loss (ml): 5 Pathology: other (nasal septal bone and cartilage) Condition: stable Disposition: PACU Indications for Procedure: this 68-year-old white male who has difficulties with chronic nasal airway obstruction bilaterally right greater than left Operative Findings: nasal septum deviated to the right with inferior turbinate hypertrophy bilateral Description of Procedure: DESCRIPTION OF PROCEDURE: The patient was brought to the operative suite, placed in the supine position. The patient underwent induction of general anesthesia with oral endotracheal intubation without difficulty. The patient was prepped and draped in the usual aseptic fashion. 1% lidocaine with 1:100,000 epinephrine was infused submucosally on both sides of the nasal septum. While this was taking vasoconstrictive effect, the inferior turbinates were infractured with a [place] elevator. Partial submucous resection of the inferior turbinates was performed with Coblation device ablating a portion of the submucosal soft tissue. The inferior turbinates were then outfractured with a [place] elevator. A left hemitransfixion incision was then made through the mucoperichondrial. Mucoperiosteal flap on the left elevated. Bony cartilaginous junction was disarticulated and mucoperiosteal flap on the right was elevated. Bony nasoseptal deformity were removed with Mel forceps and an inferior cartilaginous strip was removed, leaving a full 1.5 cm caudal strut. Checking intranasally, this corrected the nasal septal deformities and the hemitransfixion incision was closed with running 4-0 chromic suture. The bilateral [place] airway splints coated in bacitracin ointment were placed in the nasal cavities and sutured transseptally with 4-0 nylon suture. The patient was then suctioned in an orogastric fashion. The patient was allowed to emerge from general anesthesia, having tolerated the procedure well and was extubated in the operating suite, transferred to postoperative recovery area in satisfactory condition.
[2024-08-06 12:48] VITALS: TEMP 97
[2024-08-06 12:52] VITALS: RESP 16
[2024-08-06 13:46] LABS: Glucose,Whole Blood 131 mg/dL (70-110)
[2024-08-06 13:59] VITALS: BP 113/65; PULSE 62
== END 2024-08-06 14:17 | disposition home or self-care (01) ==
LOC: OR 10:40
PROVIDERS: ATTEND Otolaryngology
DX: J34.2 Deviated nasal septum (principal); J34.3 Hypertrophy of nasal turbinates; I10 Essential (primary) hypertension; I25.10 Atherosclerotic heart disease of native coronary artery without angina pectoris; E11.9 Type 2 diabetes mellitus without complications; E78.5 Hyperlipidemia, unspecified; G47.33 Obstructive sleep apnea (adult) (pediatric); K21.9 Gastro-esophageal reflux disease without esophagitis; J31.0 Chronic rhinitis; F41.9 Anxiety disorder, unspecified; M19.90 Unspecified osteoarthritis, unspecified site; E66.9 Obesity, unspecified; Z68.30 Body mass index [BMI] 30.0-30.9, adult; Z79.82 Long term (current) use of aspirin; Z79.1 Long term (current) use of non-steroidal anti-inflammatories (NSAID); Z79.84 Long term (current) use of oral hypoglycemic drugs; Z79.899 Other long term (current) drug therapy; Z88.1 Allergy status to other antibiotic agents; Z88.5 Allergy status to narcotic agent
CPT/HCPCS: 88300; 30520; 30140; J2250; J0330; J1100; J2310; J0690; J2405; J2003; J3010; J3490; J2704; J1596

== ENCOUNTER → 2024-11-20 | Outpatient (CLI) | payer MEDICARE ==
[2024-11-20 19:07] LABS: INR 0.95 sec (0.93-1.11); Prothrombin Time 10.9 sec (9.9-11.9)
[2024-11-21 02:37] LABS: Basophils # (A) 0.07 X 10*3/uL (0.00-0.10); Basophils % (A) 0.8 %; Eosinophils # (A) 0.47 X 10*3/uL (0.04-0.35); Eosinophils % (A) 5.4 %; HCT 42.6 % (39.6-50.0); HGB 13.9 g/dL (13.0-17.0); Lymphocytes # (A) 1.83 X 10*3/uL (0.90-5.00); Lymphocytes % (A) 20.9 %; MCH 29.4 pg (27.0-32.0); MCHC 32.6 g/dL (32.0-37.0); MCV 90.1 FL (80.0-97.0); Mean Platelet Volume 10.9 FL (9.5-12.2); Monocytes % (A) 11.4 %; NRBC Per 100 WBC 0 X 10*3/uL (0.00-0.01); Neutrophils # (A) 5.35 X 10*3/uL (1.80-7.70); Neutrophils % (A) 61.2 %; Platelet Count 341 X 10*3/uL (140-440); RBC 4.73 X 10*6/uL (4.40-5.60); WBC 8.75 X 10*3/uL (4.50-10.00)
[2024-11-21 02:49] LABS: BUN/Creat Ratio 17.86 Ratio (12.00-20.00); Calcium 9.9 mg/dL (8.7-10.3); Carbon Dioxide 29.2 mmol/L (21.6-31.8); Chloride 99 mmol/L (96-109); Glucose 109 mg/dL (70-110); Potassium 3.7 mmol/L (3.5-5.5); Sodium 141 mmol/L (135-145)
== END | disposition home or self-care (01) ==
LOC: LABPAT 15:24
PROVIDERS: ATTEND Orthopaedic Surgery
DX: Z01.818 Encounter for other preprocedural examination (principal); M16.11 Unilateral primary osteoarthritis, right hip; I44.7 Left bundle-branch block, unspecified; R00.1 Bradycardia, unspecified; R94.31 Abnormal electrocardiogram [ECG] [EKG]; Z22.322 Carrier or suspected carrier of Methicillin resistant Staphylococcus aureus
CPT/HCPCS: 80048; 85025; 85610; 86850; 86900; 86901; 87070; 93005

== ENCOUNTER 2024-12-01 05:41 | Day surgery (SDC) | payer MEDICARE ==
--- NOTE | 2024-11-30 20:39 | HP ---
HISTORY AND PHYSICAL DATE OF SURGERY: 12/01/2024 HISTORY OF PRESENT ILLNESS: Parish Rowe is a 69-year-old gentleman seen with symptomatic right hip osteoarthritis. After having treatment options discussed, he elected to proceed with direct anterior right total hip arthroplasty. Consent regarding the procedure was obtained. Cardiac clearance was provided by Dr. Duarte. PAST MEDICAL HISTORY: Cardiovascular disease, hypertension, hyperlipidemia, gastroesophageal reflux disease, [id number] diabetes. PAST SURGICAL HISTORY: Noncontributory. DAILY MEDICATIONS: 1. Amlodipine. 2. Atorvastatin. 3. Gemfibrozil. 4. Lisinopril. 5. Meloxicam. 6. Metformin. 7. Metoprolol. ALLERGIES: Codeine. SOCIAL HISTORY: Denies current tobacco use. PHYSICAL EVALUATION OF RIGHT HIP: He has very limited range of motion with severe pain. Positive hip impingement sign. Straight-leg raise is negative. Distal neurovascular exam is intact. IMAGING: Radiographs of the right hip reveal severe osteoarthritic changes. IMPRESSION: 1. Right hip osteoarthritis. 2. Hypertension. 3. Hyperlipidemia. 4. [id number]-kqddmdeim diabetes. 5. Cardiovascular disease. PLAN: Direct anterior right total hip arthroplasty. MMODL / IJN: [id number] /
[~2024-12-01 05:41] MED LIST changes: -LACTATED RINGERS 1,000 ML IV SCH; -LIDOCAINE 1% (10MG/ML) FOR IV START INTRADERMA PRN; +TRANEXAMIC 1,000 MG/100ML-NACL 1,000 MG in SALINE 1 100ML.BAG IVPB PRN; -droPERidol 5 MG/2 ML VIAL IVP ONE
[2024-12-01 06:41] LABS: Glucose,Whole Blood 126 mg/dL (70-110)
[2024-12-01] MEDS: MELOXICAM 7.5 MG TAB PO PRN (06:43)
[2024-12-01] MEDS: ACETAMINOPHEN TAB 500 MG TAB PO PRN (06:44)
[2024-12-01] MEDS: DEXAMETHASONE SOD PHOSPHATE 4 MG/ML 1 ML VIAL IV ONE (06:44)
[2024-12-01] MEDS: LACTATED RINGERS 1,000 ML IV SCH ×2 (06:44→12:02)
[2024-12-01] MEDS: ONDANSETRON 4 MG/2 ML VIAL IVP ONE (06:45)
[2024-12-01] MEDS: IV FLUID CONTINUATION 1,000 ML IV ONE (06:53)
[2024-12-01] MEDS: MIDAZOLAM 2 MG/2 ML VIAL IV PRN (06:57)
[2024-12-01] MEDS ORDERED: diphenhydrAMINE 50 MG/ML 1 ML VIAL ONE (07:28)
[2024-12-01] MEDS ORDERED: DEXAMETHASONE SOD PHOSPHATE 4 MG/ML 1 ML VIAL ONE (07:28)
[2024-12-01] MEDS ORDERED: PROPOFOL 10 MG/ML 20 ML VIAL IV ONE (07:28)
[2024-12-01] MEDS ORDERED: TRANEXAMIC 1,000 MG/100ML-NACL PREMIX BAG ONE (07:28)
[2024-12-01] MEDS ORDERED: ePHEDrine 50 MG/ML 1 ML VIAL ONE (07:28)
[2024-12-01] MEDS ORDERED: MIDAZOLAM 2 MG/2 ML VIAL ONE (07:28)
[2024-12-01] MEDS ORDERED: fentaNYL (PF) 50 MCG/ML 2 ML AMP ONE (07:28)
[2024-12-01] MEDS ORDERED: ROPIVACAINE 5 MG/ML 30 ML VIAL ONE (07:28)
[2024-12-01] MEDS: ceFAZolin 1,000 MG in SODIUM CHLORIDE 0.9% 1,000 ML IRRIGATION ONE (07:59)
--- NOTE | 2024-12-01 08:28 | P.ANPRN ---
Procedure Note - Anesthesia - Nerve Block Performed Right Ernesto Single Time Out Performed: Yes Date of Procedure: 12/01/24 Procedure Start Time: 06:56 Procedure Stop Time: 07:01 Location of Patient: PreOp Indication: Acute Post-Operative Pain, Analgesia, Requested by Surgeon Sedation Type: Sedate with meaningful contact maintained Preparation: Sterile Prep Position: Supine Catheter: None Needle Types: [place] Needle Gauge: 21 Ultrasound used to visualize needle placement: Yes Ultrasound used to observe medication spread: Yes Injectate: 0.5% Ropivacaine (see comment for volume) ([id number]) Blood Aspirated: No Pain Paresthesia on Injection Noted: No Resistance on Injection: Normal Image Stored and Saved: Yes Events: Uneventful and Well Tolerated
--- NOTE | 2024-12-01 08:56 | P.OP ---
Date of Procedure: 12/01/24 Preoperative Diagnosis: Right hip osteoarthritis Postoperative Diagnosis: Right hip osteoarthritis Procedure(s) Performed: Direct anterior right total hip arthroplasty Implants: 1. DePuy [place] KLA size 11 high offset collared press-fit femoral stem 2. DePuy [place] 56 mm press-fit acetabular shell 3. DePuy [place] neutral polyethylene acetabular liner 36 mm ID 56 mm OD 4. Biolox delta ceramic femoral head +1.5 36 mm Anesthesia: regional (Erector spinae block), spinal Surgeon: Bernardo Robles Ship Manager #1: Jefry Tian Estimated Blood Loss (ml): 45 Pathology: none sent Condition: stable Disposition: PACU Indications for Procedure: 69-year-old patient seen with symptomatic right hip osteoarthritis. After having treatment options discussed, he elected to proceed with direct anterior right total hip arthroplasty. Operative Findings: See description of procedure Description of Procedure: The patient was taken to the operative suite. Patient underwent a spinal anesthetic by the department of anesthesia. Patient was then transferred to the [place] table. Patient was given preoperative IV antibiotics and TXA. Both lower extremities were placed in standard leg spars. The hip was then prepped and draped in the normal sterile orthopedic fashion. A standard anterior incision was made beginning 3 cm lateral and 1 cm distal to the ASIS extending 10 cm. Dissection was then carried down through the subcutaneous soft tissues down to the fascia overlying the tensor fascia dominic. An incision was now made through the fascia. Careful dissection was taken down exposing the tensor fascia dominic muscle. A Cobra retractor was now placed along the medial femoral neck and a second one along the lateral femoral neck. The venous circumflex vessels were now identified, cauterized and clipped. We identified the anterior hip capsule. An incision was made through the hip capsule along the lateral border. I performed a partial anterior capsulectomy. Retractors were now placed around the femoral neck itself. A femoral neck cut was now made with a sagittal saw. It was completed with an osteotome at the lateral neck area. The femoral head was now removed without difficulty. The extremity was now rotated to 60 of external rotation. It was locked in position. Residual labrum was now debrided out. Serial reaming was performed of the acetabulum while Ajith JOHNSON assisted holding an anterior retractor for exposure. Once we reached the appropriate size and a trial was position and fit nicely. The appropriate size was now chosen opened and made available. It was introduced into the acetabulum without difficulty. The C-arm/fluoroscopy was now brought into the operative field. We made sure we had a true AP pelvic view. We now under direct C- arm/fluoroscopy introduced into the acetabular component with appropriate version and inclination. I held the cup in appropriate position well Ajith JOHNSON used a mallet to seat the acetabular component. I noted the component now to be well seated and stable. Acetabular cup introduce her was removed. The C-arm was pulled back. An appropriate liner was introduced and clicked into position. It was felt to be stable. At this point retractors were removed. The extremity was now placed into 140 external rotation with no traction. The leg was now dropped to the ground and adducted. Appropriate retractors were now positioned along the proximal femur. We also placed our femoral look into position. Additional capsular releasing was performed to gain access to the proximal femur. We now used a box osteotome. A canal finder was now utilized. Serial broaching was now performed with the assistance of Ajith JOHNSON tapping the broaches down with a mallet while held the broach in appropriate rotation and position. This was done until we reached the appropriate size with good overall rotational stability. Appropriate calcar planing was performed. A trial head/neck was placed into position. The hip was now reduced. The C- arm/fluoroscopy was brought back into the operative field. I obtained an AP pelvis which demonstrated adequate leg length alignment. The trial components appeared adequately sized and positioned. The C-arm/fluoroscopy was pulled back. Retractors were repositioned and the hip was dislocated. The leg was again taken down to the ground and adducted. Appropriate retractors were repositioned as well as the femoral hook. All trial components were removed. The femoral implant was opened along with the femoral head. The femoral implant was introduced on the appropriate handle into our pre-broached area. I held the component position well Ajith JOHNSON used a mallet to seat the femoral component. The femoral component was now noted to be well seated and stable.. The femoral head was introduced with good positioning and fixation noted. Retractors were now removed. The hip was now reduced. There appeared be good positioning of the hip confirmed on intraoperative fluoroscopy. Spot films were obtained to document this. A second gram of TXA was given. Bipolar cautery had been utilized intermittently through the procedure for hemostasis. The wound was irrigated copiously with pulse lavage mechanical irrigation. The fascia was repaired with Vicryl suture. The subcutaneous soft tissues were repaired in layers with Vicryl suture. The skin was approximated with pernio/Dermabond. Sterile dressings were applied. Patient was then awakened, transferred to a bed and taken to recovery in stable condition. Ajith JOHNSON assisted with the complex procedure.
[2024-12-01] MEDS ORDERED: HYDROmorphone 0.5 MG/0.5 ML SYRINGE IVP PRN ×2 (08:57)
[2024-12-01] MEDS ORDERED: NALOXONE 0.4 MG/ML 1 ML VIAL IV PRN (08:57)
--- NOTE | 2024-12-01 08:58 | FL ---
EXAMINATION TYPE: FL guidance operating room, XR Hip Limited RT DATE OF EXAM: 12/01/2024 CLINICAL INDICATION: Male, 69 years old with history of RIGHT ANTERIOR HIP, pain. TECHNIQUE: Fluoroscopy. Limited intraoperative views right hip. COMPARISON: Outside right hip x-ray November 14, 2024. FINDINGS: Fluoroscopic guidance was provided during right hip replacement procedure performed by Dr. Robles. A total of 17.0 seconds of fluoroscopic time was utilized during the procedure and 2 spo t images was acquired. Total DAP = 2.1319 Gycm2. Intraoperative images show new metallic hardware from total right hip arthroplasty satisfactory in po sition on frontal projection. IMPRESSION: As Above. [facility], , 12/01/2024 8:56 AM
[2024-12-01] MEDS: LACTATED RINGERS 1,000 ML IV ONE (09:05)
[2024-12-01 09:18] LABS: Glucose,Whole Blood 156 mg/dL (70-110)
[2024-12-01] MEDS: fentaNYL (PF) 50 MCG/ML 2 ML AMP IV PRN (09:24)
[2024-12-01] MEDS: HYDROmorphone 0.5 MG/0.5 ML SYRINGE IVP PRN (09:54)
[2024-12-01 12:04] LABS: Glucose,Whole Blood 154 mg/dL (70-110)
[2024-12-01 16:22] LABS: Glucose,Whole Blood 182 mg/dL (70-110)
[2024-12-01] MEDS: ONDANSETRON 4 MG/2 ML VIAL IVP PRN (17:22)
[2024-12-01] MEDS ORDERED: polyethylene glycoL 3350 17 GM POWD.PACK PO PRN (18:16)
[2024-12-01] MEDS ORDERED: ONDANSETRON 4 MG/2 ML VIAL IVP PRN (19:01)
--- NOTE | 2024-12-01 22:20 | P.CONS ---
History of Present Illness - History of Present Illness This is a pleasant 69 years old male with multiple medical problems was admitted for right hip osteoarthritis underwent total right hip arthroplasty. Today's postop day #0 Patient seen postoperatively he was doing well, he was awake and alert, family members were at bedside. Patient with no chest pain or dyspnea. He is not on oxygen at home He has some pain in his right hip but no abdominal symptoms like vomiting or diarrhea or abdominal cramps. No urinary complaint. No leg pain or swelling. Patient denies smoking alcohol or illicit drugs. Patient is afebrile and vital stable. No labs done currently during this admission however sugars controlled Patient continued on IV fluid and aspirin and home medication Review of Systems Review of systems CONSTITUTIONAL: No fever, no malaise, no fatigue. HEENT: No recent visual problems or hearing problems. Denied any sore throat. CARDIOVASCULAR: No orthopnea, PND, no palpitations, no syncope. PULMONARY: No shortness of breath, no cough, no hemoptysis. GASTROINTESTINAL: No diarrhea, no nausea, no vomiting, no abdominal pain. Normoactive bowel sounds. NEUROLOGICAL: No headaches, no weakness, no numbness. HEMATOLOGICAL: Denies any bleeding or petechiae. GENITOURINARY: Denies any burning micturition, frequency, or urgency. MUSCULOSKELETAL/RHEUMATOLOGICAL: Denies any joint pain, swelling, or any muscle pain. ENDOCRINE: Denies any polyuria or polydipsia. Past Medical History Past Medical History: Diabetes Mellitus, GERD/Reflux, Hyperlipidemia, Hypertension, Osteoarthritis (OA), Prostate Disorder, Sleep Apnea/CPAP/BIPAP Additional Past Medical History / Comment(s): Uses CPAP. History of Any Multi-Drug Resistant Organisms: MRSA Year Discovered:: 2013 MDRO Source:: RT KNEE Past Surgical History: Joint Replacement Additional Past Surgical History / Comment(s): Left total hip replacement, EGD, colonoscopy. sinus surg. Past Anesthesia/Blood Transfusion Reactions: Previous Problems w/ Anesthesia, Motion Sickness Additional Past Anesthesia/Blood Transfusion Reaction / Comm: very difficult time waking up after last knee replacement Past Psychological History: Anxiety Smoking Status: Former smoker Past Alcohol Use History: None Reported Additional Past Alcohol Use History / Comment(s): QUIT SMOKING IN 1982. Past Drug Use History: Marijuana Additional Drug Use History / Comment(s): USES MARIJUANA INSTRUCTED TO REFRAIN FROM USE FOR AT LEAST 24 HOURS PRIOR TO PROCEDURE. States hasn't used recently. - Past Family History Mother Family Medical History: No Reported History Brother(s) Family Medical History: Cancer Additional Family Medical History / Comment(s): Thyroid cancer. Medications and Allergies Home Medications Medication Instructions Recorded Confirmed Type Atorvastatin Calcium [Lipitor] 40 mg PO DAILY 05/24/19 12/01/24 History Meloxicam [Mobic] 7.5 mg PO BID 05/24/19 12/01/24 History Metoprolol Tartrate [Lopressor] 100 mg PO BID 05/24/19 12/01/24 History Omeprazole 20 mg PO BID 05/24/19 12/01/24 History amLODIPine [Norvasc] 5 mg PO BID 05/24/19 12/01/24 History gemfibroziL [Lopid] 600 mg PO BID 05/24/19 12/01/24 History busPIRone HCl [Buspar] 10 mg PO BID 09/08/21 12/01/24 History lisinopriL [Zestril] 20 mg PO BID 07/24/23 12/01/24 History Tamsulosin [Flomax] 0.4 mg PO DAILY #30 cap 08/01/23 12/01/24 Rx polyethylene glycoL 3350 [Miralax] 17 gm PO DAILY PRN #21 packet 08/01/23 12/01/24 Rx Aspirin [Adult Low Dose Aspirin EC] 81 mg PO DAILY 05/13/24 12/01/24 History Potassium Gluconate 99 mg PO DAILY 05/13/24 12/01/24 History hydrALAZINE HCL [Apresoline] 25 mg PO TID 05/13/24 12/01/24 History metFORMIN HCL 500 mg PO BID 05/13/24 12/01/24 History Desloratadine [Clarinex] 10 mg PO QAM 05/14/24 12/01/24 History Triamterene/Hydrochlorothiazid 1 tab PO QAM 05/14/24 12/01/24 History [Triamterene-Hctz 37.5-25 mg Cp] Famotidine 20 mg PO DAILY 08/04/24 12/01/24 History Allergies Allergy/AdvReac Type Severity Reaction Status Date / Time codeine Allergy Chest Pain Verified 12/01/24 06:27 erythromycin base Allergy Nausea & Verified 12/01/24 06:27 Vomiting Physical Exam Vitals: Vital Signs Temp Pulse Resp BP Pulse Ox 12/01/24 14:00 98.1 F 72 19 119/76 96 12/01/24 11:30 65 16 130/62 95 12/01/24 11:00 62 18 153/74 96 12/01/24 10:30 61 16 156/72 94 L 12/01/24 10:15 65 16 149/68 95 12/01/24 10:00 61 18 156/88 97 12/01/24 09:45 64 18 147/69 96 12/01/24 09:30 62 16 123/57 94 L 12/01/24 09:20 65 16 128/65 96 12/01/24 09:12 63 16 134/72 95 12/01/24 07:10 52 L 16 113/56 97 12/01/24 06:45 97.5 F L 52 L 16 175/74 95 Intake and Output 12/01/24 12/01/24 12/01/24 06:59 14:59 22:59 Intake Total 100 1251 Output Total 45 Balance 100 1206 Intake: IV 100 1251 Output: Estimated Blood Loss 45 Other: Weight 110.1 kg 110.1 kg GENERAL: The patient is alert and oriented x3, not in any acute distress. Well developed, well nourished. HEENT: Pupils are round and equally reacting to light. EOMI. No scleral icterus. No conjunctival pallor. Normocephalic, atraumatic. No pharyngeal erythema. No thyromegaly. CARDIOVASCULAR: S1 and S2 present. No murmurs, rubs, or gallops. PULMONARY: Chest is clear to auscultation, no wheezing , no crackles. ABDOMEN: Soft, nontender, nondistended, normoactive bowel sounds. No palpable organomegaly. MUSCULOSKELETAL: No joint swelling or deformity. -EXTREMITIES: No cyanosis, clubbing, or pedal edema. Right hip surgical wound is closed with dressing in place NEUROLOGICAL: Gross neurological examination did not reveal any focal deficits. SKIN: No rashes. no petechiae. Results Labs: Abnormal Lab Results - Last 24 Hours (Table) 12/01/24 12/01/24 12/01/24 Range/Units 06:38 09:16 12:02 POC Glucose (mg/dL) 126 H 156 H 154 H (70-110) mg/dL 12/01/24 Range/Units 16:21 POC Glucose (mg/dL) 182 H (70-110) mg/dL Assessment and Plan Assessment: Right hip arthroplasty status post right DAVID Hypertension Hyperlipidemia Obesity with BMI of 36.9 Benign prostatic hypertrophy Plan: Continue with postop care Pain management Continue with gentle hydration Patient resume blood pressure medications On aspirin GI and DVT prophylaxis deferred to surgery team, currently is on Pepcid for GI prophylaxis. We will follow-up
[2024-12-01] MEDS: PANTOPRAZOLE 40 MG TABLET PO SCH (23:03)
[2024-12-01] MEDS: busPIRone HCl 10 MG TAB PO SCH (23:03)
[2024-12-01] MEDS: HYDROcodone/APAP 5-325MG 1 EACH TAB PO PRN (23:03)
[2024-12-01] MEDS: SENNOSIDES-DOCUSATE SODIUM 1 EACH TAB PO SCH (23:03)
[2024-12-01] MEDS: METOPROLOL TARTRATE 50 MG TAB PO SCH (23:04)
[2024-12-01] MEDS: ASPIRIN 81 MG PO SCH (23:04)
[2024-12-01] MEDS: hydrALAZINE HCL 25 MG TAB PO SCH (23:05)
[2024-12-01] MEDS: amLODIPine 5 MG TAB PO SCH (23:05)
[2024-12-01] MEDS: lisinopriL 20 MG TAB PO SCH (23:05)
[2024-12-02] MEDS: HYDROcodone/APAP 7.5-325MG 1 EACH TAB PO PRN (04:55)
[2024-12-02 08:19] LABS: Basophils # (A) 0.02 X 10*3/uL (0.00-0.10); Basophils % (A) 0.2 %; Eosinophils # (A) 0.04 X 10*3/uL (0.04-0.35); Eosinophils % (A) 0.3 %; HCT 36.2 % (39.6-50.0); Lymphocytes # (A) 0.97 X 10*3/uL (0.90-5.00); Lymphocytes % (A) 7.3 %; MCH 29.8 pg (27.0-32.0); MCHC 33.1 g/dL (32.0-37.0); MCV 89.8 FL (80.0-97.0); Mean Platelet Volume 10.8 FL (9.5-12.2); Monocytes % (A) 11.3 %; NRBC Per 100 WBC 0 X 10*3/uL (0.00-0.01); Neutrophils # (A) 10.69 X 10*3/uL (1.80-7.70); Neutrophils % (A) 80.5 %; Platelet Count 308 X 10*3/uL (140-440); RBC 4.03 X 10*6/uL (4.40-5.60); RDW 13.8 % (11.5-14.5); WBC 13.27 X 10*3/uL (4.50-10.00)
[2024-12-02 08:46] VITALS: BP 129/61; PULSE 61; RESP 18; TEMP 98.1
[2024-12-02] MEDS ORDERED: FAMOTIDINE 20 MG TAB PO SCH (09:00)
--- NOTE | 2024-12-02 09:16 | P.PN ---
Subjective Progress Note Date: 12/02/24 Principal diagnosis: Status post right direct anterior total hip arthroplasty Patient was evaluated at bedside today, he is up in his hospital chair having breakfast. He did ambulate well with physical therapy. He is been urinating with no issues since the surgery. Pain is well-controlled. He denies headaches, lightheadedness, chest pain or shortness of breath Objective - Vital Signs Vital signs: Vital Signs Temp 98.1 F 12/02/24 07:21 Pulse 61 12/02/24 07:21 Resp 18 12/02/24 07:21 BP 129/61 12/02/24 07:21 Pulse Ox 90 L 12/02/24 07:21 FiO2 Intake & Output 12/01/24 12/02/24 12/02/24 18:59 06:59 18:59 Intake Total 1251 Output Total 45 900 Balance 1206 -900 Weight 110.1 kg Intake: IV 1251 Output: Urine 900 Estimated Blood Loss 45 Other: Voiding Method Urinal # Voids 3 - Exam Right lower extremity: Incision is clean, dry, and intact. The foam dressing is in good condition. There is minimal soft tissue swelling and ecchymosis surrounding the medial and lateral aspects of the incision. Calf is soft, no tenderness with palpation. Plantar flexion, dorsiflexion, EHL, FHL are intact. Sensory exam to light touch throughout the extremity is intact, dorsal pedis pulses 2+. - Labs CBC & Chem 7: 12/02/24 03:06 Labs: Abnormal Lab Results - Last 24 Hours (Table) 12/01/24 12/01/24 12/01/24 Range/Units 09:16 12:02 16:21 WBC (4.50-10.00) X 10*3/uL RBC (4.40-5.60) X 10*6/uL Hgb (13.0-17.0) g/dL Hct (39.6-50.0) % Immature Gran # (0.00-0.04) X 10*3/uL Neutrophils # (1.80-7.70) X 10*3/uL Monocytes # (0.20-1.00) X 10*3/uL POC Glucose (mg/dL) 156 H 154 H 182 H (70-110) mg/dL 12/02/24 Range/Units 03:06 WBC 13.27 H (4.50-10.00) X 10*3/uL RBC 4.03 L (4.40-5.60) X 10*6/uL Hgb 12.0 L (13.0-17.0) g/dL Hct 36.2 L (39.6-50.0) % Immature Gran # 0.05 H (0.00-0.04) X 10*3/uL Neutrophils # 10.69 H (1.80-7.70) X 10*3/uL Monocytes # 1.50 H (0.20-1.00) X 10*3/uL POC Glucose (mg/dL) (70-110) mg/dL Assessment and Plan Assessment: Postoperative day #1 status post direct anterior right total hip arthroplasty Plan: Pain control, plan for discharge home on [place] 7.5 mg / 325 mg, also discharge with stool softeners DVT prophylaxis, aspirin 81 mg twice a day for 30 days Wound care instructions discussed, this to include showering and bandage removal Home PT/nursing after discharge Medical recommendations appreciated Discharge planning: Patient stable for discharge home today Time with Patient: Less than 30
--- NOTE | 2024-12-02 09:19 | P.DS ---
Providers Date of admission: 12/01/2024 Expected date of discharge: 12/02/24 Attending physician: Bernardo Robles Consults: 12/01/24 08:57 Consult Physician Routine Consulting Provider: Joseluis Huerta Consult Reason/Comments: Medical management Do you want consulting provider notified?: Yes Primary care physician: Radha Herrera Hospital Course: Date of admission: 12/01/2024 Date of discharge: 12/02/2024 Admission diagnosis: Status post direct anterior right total hip arthroplasty Discharge diagnosis: Same Attending physician: Dr. Robles Surgical procedures: Direct anterior right total hip arthroplasty Brief history: Patient is a 69-year-old male with a history of progressive primary right hip osteoarthritis. At this point patient has failed conservative treatment measures and has opted to proceed with a elective direct anterior right total hip arthroplasty. Hospital course: Details of patient's surgery can be found in operative report. Patient tolerated the procedure well and was subsequently transported to orthopedic floor. Patient's orthopeidc and medical care was provided daily. Patient had daily laboratory tests performed for evaluation of overall blood counts. Patient had daily physical therapy to include strengthening range of motion as well as education with walker ambulation. Patient was treated with aspirin for their postoperative DVT prophylaxis during their inpatient stay. Patient was noted to have a relatively uneventful postoperative course. Patient reported satisfactory pain control with oral pain medications by postoperative day 0. Patient showed satisfactory progress with physical therapy. Patient moved steadily through the program and had no difficulty meeting the goals by postoperative day 1. Given patient's otherwise satisfactory course and having met physical therapy goals, plan is to discharge patient home on postoperative day 1. Discharge condition/disposition: Patient will be discharged home in stable condition. Discharge medications: Instructions are given on resumption of patient's normal daily medications per primary care recommendation, in addition patient will be prescribed [place] 7.5 mg / 325 mg, senna. Discharge instructions: 1. Wound care and infection precautions, keep incision dry and covered while showering, no lotions, creams, moisturizers. No soaking, tubs, pools, hottubs. Do not scrub over the incision. 2. Weight-bear as tolerated with walker / cane until follow-up. 3. Ice and elevate when necessary. Do not exceed 20 minutes per hour with ice pack. 4. Utilize compression sleeve until seen at first follow up appointment. 5. Visiting nursing care. 6. Home physical therapy. 7. Pain meds and anticoagulants per prescription. 8. Pain medication has potential to cause constipation. Increase oral fluid and fiber intake. Contact primary care provider if you have not had a bowel movement within 48 hours after discharge 9. No anti-inflammatory medication until discussed at first post operative visit, this including Motrin, Aleve, Mobic, Diclofenac. 10. Follow up in office at 2 weeks postop with Ajith Tian PA-C/Sukumar Shipley 11. Follow up with your primary care doctor 7-10 days after discharge. 12. Contact [facility] with any questions, . Procedures: Direct anterior right total hip arthroplasty Patient Condition at Discharge: Good Plan - Discharge Summary Discharge Rx Participant: No New Discharge Prescriptions: New Aspirin [Adult Low Dose Aspirin EC] 81 mg PO BID #60 tab HYDROcodone/APAP 7.5-325MG [[place]ord 7.5] 1 each PO Q6HR PRN #28 tab PRN Reason: Pain Sennosides/Docusate Sodium [Senna-S 8.6-50 mg Tablet] 2 each PO DAILY PRN #30 tablet PRN Reason: Constipation No Action amLODIPine [Norvasc] 5 mg PO BID Metoprolol Tartrate [Lopressor] 100 mg PO BID Omeprazole 20 mg PO BID Meloxicam [Mobic] 7.5 mg PO BID gemfibroziL [Lopid] 600 mg PO BID Atorvastatin Calcium [Lipitor] 40 mg PO DAILY busPIRone HCl [Buspar] 10 mg PO BID polyethylene glycoL 3350 [Miralax] 17 gm PO DAILY PRN #21 packet PRN Reason: Constipation metFORMIN HCL 500 mg PO BID Aspirin [Adult Low Dose Aspirin EC] 81 mg PO DAILY Triamterene/Hydrochlorothiazid [Triamterene-Hctz 37.5-25 mg Cp] 1 tab PO QAM Desloratadine [Clarinex] 10 mg PO QAM Famotidine 20 mg PO DAILY lisinopriL [Zestril] 20 mg PO BID Tamsulosin [Flomax] 0.4 mg PO DAILY #30 cap hydrALAZINE HCL [Apresoline] 25 mg PO TID Potassium Gluconate 99 mg PO DAILY Discharge Medication List Atorvastatin Calcium [Lipitor] 40 mg PO DAILY 05/24/19 [History] Meloxicam [Mobic] 7.5 mg PO BID 05/24/19 [History] Metoprolol Tartrate [Lopressor] 100 mg PO BID 05/24/19 [History] Omeprazole 20 mg PO BID 05/24/19 [History] amLODIPine [Norvasc] 5 mg PO BID 05/24/19 [History] gemfibroziL [Lopid] 600 mg PO BID 05/24/19 [History] busPIRone HCl [Buspar] 10 mg PO BID 09/08/21 [History] lisinopriL [Zestril] 20 mg PO BID 07/24/23 [History] Tamsulosin [Flomax] 0.4 mg PO DAILY #30 cap 08/01/23 [Rx] polyethylene glycoL 3350 [Miralax] 17 gm PO DAILY PRN #21 packet 08/01/23 [Rx] Aspirin [Adult Low Dose Aspirin EC] 81 mg PO DAILY 05/13/24 [History] Potassium Gluconate 99 mg PO DAILY 05/13/24 [History] hydrALAZINE HCL [Apresoline] 25 mg PO TID 05/13/24 [History] metFORMIN HCL 500 mg PO BID 05/13/24 [History] Desloratadine [Clarinex] 10 mg PO QAM 05/14/24 [History] Triamterene/Hydrochlorothiazid [Triamterene-Hctz 37.5-25 mg Cp] 1 tab PO QAM 05/14/24 [History] Famotidine 20 mg PO DAILY 08/04/24 [History] Aspirin [Adult Low Dose Aspirin EC] 81 mg PO BID #60 tab 12/02/24 [Rx] HYDROcodone/APAP 7.5-325MG [[place] 7.5] 1 each PO Q6HR PRN #28 tab 12/02/24 [Rx] Sennosides/Docusate Sodium [Senna-S 8.6-50 mg Tablet] 2 each PO DAILY PRN #30 tablet 12/02/24 [Rx] Follow up Appointment(s)/Referral(s): Jefry Tian PAC [PHYSICIAN [employer] STOCK CLERK] - 2 Weeks Activity/Diet/Wound Care/Special Instructions: Orthopedic Discharge Instructions: 1. Wound care and infection precautions, keep incision dry and covered while showering, no lotions, creams, moisturizers. No soaking, pools, hot tubs. Do not scrub over incision. 2. Weight-bear as tolerated with walker / cane until follow-up. 3. Ice and elevate when necessary. Do not exceed 20 minutes per hour with ice pack. 4. Utilize compression sleeve until seen at first follow up appointment. 5. Pain meds and anticoagulants per prescription. 6. Pain medication has potential to cause constipation. Increase oral fluid and fiber intake. Contact primary care provider if you have not had a bowel movement within 48 hours after discharge. 7. No anti-inflammatory medication until discussed at first post operative visit, this including Motrin, Aleve, Mobic, Diclofenac. 8. Follow up in office at 2 weeks postop with Ajith Tian PA-C/Sukumar Aly PA-C 9. Follow up with your primary care doctor 7-10 days after discharge. 10. Contact [facility] with any questions, . Wound care instructions: 1. Okay to remove surgical dressing as of 12/10/2024 2. Okay to shower directly over the incision after removal of dressing Discharge Disposition: HOME WITH HOME HEALTH SERVICES
[2024-12-02] MEDS: FAMOTIDINE 20 MG TAB PO SCH (10:14)
[2024-12-02] MEDS: TRIAMTERENE-HCTZ 37.5-25MG 1 EACH CAP PO SCH (10:14)
[2024-12-02] MEDS: MULTIVITAMINS, THERA 1 EACH TAB PO SCH (10:14)
[2024-12-02] MEDS: ATORVASTATIN 40 MG TAB PO SCH (10:15)
[2024-12-02] MEDS: LORATADINE 10 MG TAB PO SCH (10:15)
[2024-12-02] MEDS: TAMSULOSIN 0.4 MG CAP.ER.24H PO SCH (10:15)
[2024-12-02] MEDS: FENOFIBRATE 160 MG TAB PO SCH (10:15)
--- NOTE | 2024-12-02 10:21 | P.PN ---
Subjective This is a pleasant 69 years old male with multiple medical problems was admitted for right hip osteoarthritis underwent total right hip arthroplasty. Today's postop day #0 Patient seen postoperatively he was doing well, he was awake and alert, family members were at bedside. Patient with no chest pain or dyspnea. He is not on oxygen at home He has some pain in his right hip but no abdominal symptoms like vomiting or diarrhea or abdominal cramps. No urinary complaint. No leg pain or swelling. Patient denies smoking alcohol or illicit drugs. Patient is afebrile and vital stable. No labs done currently during this admission however sugars controlled Patient continued on IV fluid and aspirin and home medication 12/02 Patient is awake alert No new complaint and is doing okay Patient states he can be discharged home today. Labs showing mild leukocytosis about 13K most likely reactive, no signs of infection, no need for antibiotics. Patient was instructed to follow-up with his PCP Dr. Herrera in 1 week Objective - Vital Signs Vital signs: Vital Signs Temp 98.1 F 12/02/24 07:21 Pulse 61 12/02/24 07:21 Resp 18 12/02/24 07:21 BP 129/61 12/02/24 07:21 Pulse Ox 90 L 12/02/24 07:21 FiO2 Intake & Output 12/01/24 12/02/24 12/02/24 18:59 06:59 18:59 Intake Total 1251 Output Total 45 900 Balance 1206 -900 Weight 110.1 kg Intake: IV 1251 Output: Urine 900 Estimated Blood Loss 45 Other: Voiding Method Urinal # Voids 3 - Exam GENERAL: The patient is alert and oriented x3, not in any acute distress. Well developed, well nourished. HEENT: Pupils are round and equally reacting to light. EOMI. No scleral icterus. No conjunctival pallor. Normocephalic, atraumatic. No pharyngeal erythema. No thyromegaly. CARDIOVASCULAR: S1 and S2 present. No murmurs, rubs, or gallops. PULMONARY: Chest is clear to auscultation, no wheezing , no crackles. ABDOMEN: Soft, nontender, nondistended, normoactive bowel sounds. No palpable organomegaly. -MUSCULOSKELETAL: No joint swelling or deformity. Surgical wound with dressing in place, rest of exam is deferred to surgery team EXTREMITIES: No cyanosis, clubbing, or pedal edema. NEUROLOGICAL: Gross neurological examination did not reveal any focal deficits. SKIN: No rashes. no petechiae. - Labs CBC & Chem 7: 12/02/24 03:06 Labs: Abnormal Lab Results - Last 24 Hours (Table) 12/01/24 12/01/24 12/02/24 Range/Units 12:02 16:21 03:06 WBC 13.27 H (4.50-10.00) X 10*3/uL RBC 4.03 L (4.40-5.60) X 10*6/uL Hgb 12.0 L (13.0-17.0) g/dL Hct 36.2 L (39.6-50.0) % Immature Gran # 0.05 H (0.00-0.04) X 10*3/uL Neutrophils # 10.69 H (1.80-7.70) X 10*3/uL Monocytes # 1.50 H (0.20-1.00) X 10*3/uL POC Glucose (mg/dL) 154 H 182 H (70-110) mg/dL Assessment and Plan Assessment: Right hip arthroplasty status post right DAVID Leukocytosis, mild reactive, no signs of infection Hypertension Hyperlipidemia Obesity with BMI of 36.9 Benign prostatic hypertrophy Plan: Continue with postop care Pain management No need for antibiotics but needs close follow up of white cell count Of IV fluids Patient resume blood pressure medications On aspirin GI and DVT prophylaxis deferred to surgery team, currently is on Pepcid for GI prophylaxis. We will follow-up
== END 2024-12-02 11:36 | disposition home or self-care (01) ==
LOC: OR 05:41 → 4SSUR 11:33 → OR 12-02 11:36
PROVIDERS: ATTEND Orthopaedic Surgery
DX: M16.11 Unilateral primary osteoarthritis, right hip (principal); D72.829 Elevated white blood cell count, unspecified; E11.9 Type 2 diabetes mellitus without complications; E66.9 Obesity, unspecified; E78.5 Hyperlipidemia, unspecified; F41.9 Anxiety disorder, unspecified; G47.30 Sleep apnea, unspecified; G89.18 Other acute postprocedural pain; I10 Essential (primary) hypertension; I25.10 Atherosclerotic heart disease of native coronary artery without angina pectoris; N40.0 Benign prostatic hyperplasia without lower urinary tract symptoms; Z68.36 Body mass index [BMI] 36.0-36.9, adult; Z79.82 Long term (current) use of aspirin; Z79.84 Long term (current) use of oral hypoglycemic drugs; Z79.899 Other long term (current) drug therapy; Z87.891 Personal history of nicotine dependence; Z88.1 Allergy status to other antibiotic agents; Z88.5 Allergy status to narcotic agent
CPT/HCPCS: 97161; 64473; 85025; 73501; 27130; C1776; J2250; J1100; J0690 ×2; J2405; J3010; J1171